=== PATIENT | male | born 1950 | race Caucasian/White ===

== ENCOUNTER 2018-09-19 09:25 | Outpatient (CLI) | payer MEDICARE, OTHER, SELFPAY ==
--- NOTE | 2018-09-19 12:21 | DI.RAD_ITS ---
SYMPTOMS/DIAGNOSIS: 6 MONTHS PAIN, REDUCED MOTION, M25.519 RIGHT SHOULDER: Six views were obtained. There is marked loss of the cartilaginous joint space of the glenohumeral joint with prominent subchondral sclerosis and cyst formation and prominent osteophyte formation. CONCLUSION: Severe DJD glenohumeral joint. Mild DJD of the AC joint noted as well.
== END 2018-09-19 09:45 ==
PROVIDERS: PCP Family Medicine; Visit Provider Family Medicine
DX: M25.511 Pain in right shoulder (principal); M19.011 Primary osteoarthritis, right shoulder; M25.811 Other specified joint disorders, right shoulder
CPT/HCPCS: 73030

== ENCOUNTER 2018-12-23 05:18 | Emergency (ER) | payer MEDICARE, OTHER, SELFPAY ==
[2018-12-23 05:17] VITALS: BP 141/107; PULSE 95; RESP 18; TEMP 36.1; O2SAT 100
[2018-12-23 05:36] VITALS: BP 143/95; O2SAT 98
--- NOTE | 2018-12-23 05:41 | W.ED.GENAD ---
Discharge Plan Disposition Patient Disposition: HOME Condition: Improving Discharge Details Chief Complaint: Nk/Back Pain Clinical Impression: Lumbago Primary Care Provider: Kwaku Rios ED Provider: Rupesh De León Home Meds and New Rx's Prescriptions: New hydrocodone-acetaminophen 5-325 mg tablet 1 tab PO Q6H PRN (Reason: pain) Qty: 10 RF: 0 Continued aspirin 81 mg tablet,delayed release (DR/EC) 81 mg PO DAILY RF: 0 Lantus U-100 Insulin 100 unit/mL solution 15 unit subcut HS Qty: 10 RF: 3 pen needle, diabetic [Lite Touch Insulin Pen [place]] 31 gauge x 3/16 needle .ROUTE .MEDSUPPLY Qty: 100 RF: 3 rosuvastatin [Crestor] 10 MG tablet 10 mg PO DAILY RF: 0 Apidra SoloStar U-100 Insulin 100 UNIT/ML insulin pen 8 units SQ AC RF: 0 Dostinex 0.5 mg PO .2X A WEEK RF: 0 amlodipine 5 MG tablet 10 mg PO DAILY Qty: 60 RF: 0 magnesium oxide 400 MG tablet 400 mg PO DAILY Qty: 30 RF: 0 furosemide 40 MG tablet 40 mg PO BID@0830,1600 Qty: 60 RF: 0 carvedilol 3.125 MG tablet 6.25 mg PO BID Qty: 60 RF: 0 trazodone 50 mg Tablet 50 mg PO HS RF: 0 diltiazem HCl [Cardizem] 60 MG tablet 60 mg PO DAILY Qty: 30 RF: 0 Discharge Instructions Instructions: Low Back Strain (ED) Additional Instructions: Continue your regular medications. We will trial a small number of hydrocodone for use to control your back pain as you have multilevel degenerative changes of the spine consistent with arthritis. Do not use Tylenol at the same time is taking the hydrocodone which does contain Tylenol. Please go directly to dialysis today. We will ask our care management team to help you with both home health evaluation and to achieve a follow-up in clinic. Continue your regular medications. Medical Decision Making 68-year-old male diabetic presents from home with his via EMS. Patient complains primarily of bilateral low back and flank pain intermittently over 1 week that is worse with movement. He also has had a cough and shortness of breath. He is afebrile with temp 36.1 his pulse is in the 90s, his blood pressure 143/95 with normal oxygen. Differential diagnosis includes exacerbation of previous sciatica, bronchitis, pneumonia, viral syndrome and back strain. Patient referred for laboratory testing and CT images. There are small bilateral pleural effusions present, no focal lung consolidation, the abdomen is unremarkable. The lumbar spine has multiple levels of degenerative changes. CBC shows a white count of 8, hematocrit 33, platelets 145. Chemistry sodium 139, potassium 5.3, chloride 98, bicarb 27, BUN 81, creatinine 9.3, LFTs are unremarkable. Consistent with lumbago secondary to degenerative changes. The patient and his voiced frustration with completing home health evaluations and achieving follow-up in primary care. I have consented him for use of a small amount of hydrocodone for his back. We will ask care management to arrange home health visit ECG Data Attestation: I personally reviewed and interpreted this ECG (s) as follows: Interpretation: Normal sinus rhythm with a rate of 95, nonspecific ST segment changes in lead V6, no ST segment elevation. HPI General Mode of arrival: EMS. Date/Time Provider Initiated Documentation: 12/23/18 05:30. Limitations to Documentation: no limitations. Information obtained by: patient, family and EMS. History of Present Illness 68 year old M presents to the emergency department with the chief complaint of Multiple complaints: Low back pain, cough, weakness for days time, described as moderate, Quality is described as aching and dull, and is localized to the back. Patient reports no radiation. Patient started experiencing this day(s) and it has been intermittent. Rest improves symptom(s), Movement worsens symptoms . Patient notes cough and shortness of breath. Patient did receive the following treatments prior to arrival, none Related Data Home Medications Medication Instructions Recorded Confirmed Apidra SoloStar U-100 Insulin 8 units SQ AC 12/24/14 12/23/18 Dostinex 0.5 mg PO .2X A WEEK 12/24/14 12/23/18 rosuvastatin [Crestor] 10 mg PO DAILY 12/24/14 12/23/18 amlodipine 10 mg PO DAILY #60 tab 11/17/15 12/23/18 carvedilol 6.25 mg PO BID #60 tab 11/17/15 12/23/18 furosemide 40 mg PO BID@0830,1600 #60 tab 04/21/16 05/28/19 magnesium oxide 400 mg PO DAILY #30 tab 11/17/15 12/23/18 diltiazem HCl [Cardizem] 60 mg PO DAILY #30 tab 04/25/17 12/23/18 aspirin 81 mg tablet,delayed 81 mg PO DAILY 09/19/18 12/23/18 release insulin glargine (U- 100) 100 15 unit SUBCUT HS #10 ml 11/11/18 12/23/18 unit/mL subcutaneous solution pen needle, diabetic 31 gauge x #100 each 11/18/18 12/23/1810/11 hydrocodone-acetaminophen 1 tab PO Q6H PRN #10 tab 12/23/18 trazodone 50 mg PO HS 12/23/18 12/23/18 Previous Rx's Medication Instructions Recorded amlodipine 10 mg PO DAILY #60 tab 11/17/15 carvedilol 6.25 mg PO BID #60 tab 11/17/15 furosemide 40 mg PO BID@0830,1600 #60 tab 11/17/15 magnesium oxide 400 mg PO DAILY #30 tab 11/17/15 diltiazem HCl [Cardizem] 60 mg PO DAILY #30 tab 04/25/17 insulin glargine (U- 100) 100 15 unit SUBCUT HS #10 ml 11/11/18 unit/mL subcutaneous solution pen needle, diabetic 31 gauge x #100 each 11/18/1810/11 hydrocodone-acetaminophen 1 tab PO Q6H PRN #10 tab 12/23/18 Allergies Allergy/AdvReac Type Severity Reaction Status Date / Time atorvastatin AdvReac Intermediate GI upset, Verified 12/23/18 05:23 dizziness oxycodone AdvReac Intermediate nightmares Verified 12/23/18 05:23 General Stated Complaint: Nk/Back Pain DAIANA: 3 Review of Systems Review of Systems Due for dialysis today. Denies fall or injury. 8 systems reviewed and otherwise negative [facility] Medical History Type II diabetes mellitus (Chronic) Surgical History Hx of joint replacement (Acute) S/P total knee replacement (Acute) Hx of tonsillectomy (Chronic) Colonoscopy - MAC (08/07/16) Family History Mother Diabetes Cancer Sister Cancer Diabetes Brother Heart disease Father No problems noted. 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 Pleasant, well groomed, interactive. HEAD: Normocephalic, atraumatic ENT: Mucous membranes moist, oropharynx unremarkable, External ear exam unremarkable EYES: PERRL, EOMI NECK: Full ROM, no NICKOLAS, no menigismus CHEST/RESP: Nontender, clear to auscultation bilateral, no wheeze/rhonchi/rales CARDIOVASCULAR: RRR, no murmur, rub bozena. 2+ Rad pulse bilateral ABDOMEN: Soft, nontender, no mass. +Bowel sounds,. Bilateral flank tenderness. EXT: Full ROM, no edema, no rash Neuro: Grossly normal neurologic exam, conversant, interactive. Psych: Speech fluent, thoughts congruent, affect normal Course Vital Signs Temperature 36.1 C L 12/23/18 05:17 Pulse 95 H 12/23/18 05:17 Respiratory Rate 18 12/23/18 05:17 Blood Pressure 141/107 H 12/23/18 05:17 Pulse Oximetry 100 12/23/18 05:17 Temperature 36.1 C L 12/23/18 05:17 Temperature Source Temporal Artery Scan 12/23/18 05:17 Pulse 95 H 12/23/18 05:17 Respiratory Rate 18 12/23/18 05:17 Respiratory Effort 12/23/18 05:17 Blood Pressure 143/95 H 12/23/18 05:36 Pulse Oximetry 98 12/23/18 05:36 Oxygen Delivery Method Room Air 12/23/18 05:36 Oxygen Flow Rate 0 12/23/18 05:36 Pain Level 10 12/23/18 05:17
[2018-12-23] MEDS: MORPHine 10 MG/ML VIAL 4 MG IVP (05:48)
[2018-12-23] MEDS: Normal Saline Flush 10 ML SYR IVP (05:50)
[2018-12-23 05:56] LABS: Abs Immature Grans 0.01 k/cumm (0.0-0.09); Absolute Basophil Count 0.04 k/cumm (0.0-0.2); Absolute Eosinophil Count 0.27 k/cumm (0.0-0.7); Absolute Lymphocyte Count 0.89 k/cumm (1.2-3.4); Basophils % 0.5; Eosinophils % 3.2; HCT 32.7 % (40.0-50.0); Immature Grans % 0.1; Lymphocytes % 10.5; Mean Corp. HGB Concentration 33.6 g/dL (32.0-36.0); Mean Corpuscular Hemoglobin 33.4 pg (27.0-33.0); Mean Corpuscular Volume 99.4 fL (80-95); Mean Platelet Volume 11.5 fL (8.0-11.0); Monocytes % 7.1; Neutrophils % 78.6; Platelet Count 145 x1000/uL (130-400); RBC 3.29 m/cumm (4.50-6.00); RBC Distribution Width 15.1 % (11.8-14.1); White Blood Cell Count 8.51 k/cumm (4.4-10.8)
[2018-12-23 06:10] LABS: ALT 49 U/L (12-78); AST 18 U/L (15-37); Albumin 3.7 g/dL (3.4-5.0); Alkaline Phosphatase 69 U/L (46-116); Anion Gap 14.3 mmol/L (3-11); Bilirubin, Total 0.4 mg/dL (0.2-1.0); CO2 26.7 mmol/L (21.0-32.0); Calcium 8.4 mg/dL (8.5-10.1); Chloride 98 mmol/L (98-107); Estimated GFR 5.66 (mL/min/1.73m2); Glucose 82 mg/dL (70-100); Potassium 5.3 mmol/L (3.5-5.1); Sodium 139 mmol/L (136-145); Total Protein 7.4 g/dL (6.4-8.2)
[2018-12-23 06:14] LABS: BUN 81 mg/dL (7-18); CREATININE 9.31 mg/dL (0.70-1.30)
--- NOTE | 2018-12-23 06:20 | DI.CT_ITS ---
SYMPTOMS/DIAGNOSIS: DIALYSIS PATIENT, COUGH, FEVER, FLANK PAIN CT OF THE CHEST, ABDOMEN AND PELVIS: Routine noncontrast examination was performed. There is patient motion artifact present. CT SCAN OF THE ABDOMEN AND PELVIS: Lack of IV contrast does limits evaluation of the abdominal and pelvic organs. There are post surgical changes of a lap band procedure. The enhanced liver, gallbladder, bile ducts, pancreas, spleen and adrenal glands are unremarkable. There is bilateral renal cortical atrophy present. No nephrolithiasis or hydronephrosis is seen. The urinary bladder is intact. The reproductive organs are unremarkable. Diverticulosis of the colon is noted but no evidence of acute diverticulitis. No evidence of a bowel obstruction or inflammation. There is a normal appendix present. The aorta is of normal caliber. No significant abdominal or pelvic adenopathy, ascites or pneumoperitoneum is present. Degenerative changes are present in the spine. IMPRESSION: No evidence of an acute abdomen. CT SCAN OF THE CHEST: There is are small bilateral pleural effusions, right greater than left. The heart is enlarged. No significant pericardial effusion is seen. No significant mediastinal adenopathy is present. Mild dependent atelectatic changes are seen in the lung bases. The lungs are otherwise clear. The tracheobronchial tree is unremarkable. There is a 3 mm noncalcified pulmonary nodule in the right upper lobe laterally. Degenerative changes are seen in the spine. IMPRESSION: 1. Small bilateral pleural effusions, right greater than left. 2. Small right upper lobe pulmonary nodule. Please correlate with the patient's past clinical and medical history including smoking history. Follow up should be considered based on past medical history and may include a follow up CT scan of the chest in 6-12 months.
--- NOTE | 2018-12-23 06:22 | DI.VRAD_ITS ---
EXAM: CT Chest Without Contrast EXAM DATE/TIME: 12/23/2018 5:40 AM CLINICAL HISTORY: 68 years old, male; Other: Back pain; Other: Cough; Prior surgery; Surgery date: 6+ months; Surgery type: Lap band; Patient HX: Diabetes, esrd; Additional info: Back pain going on and off for a while and cough TECHNIQUE: Imaging protocol: Axial computed tomography images of the chest without intravenous contrast. Coronal and sagittal reformatted images were created and reviewed. Radiation optimization: All CT scans at this facility use at least one of these dose optimization techniques: automated exposure control; mA and/or kV adjustment per patient size (includes targeted exams where dose is matched to clinical indication); or iterative reconstruction. COMPARISON: No relevant prior studies available. FINDINGS: Lungs: unremarkable. No consolidation. No masses. Pleural space: Small right pleural effusion. Trace amount of pleural fluid on the left. Heart: unremarkable. No pericardial effusion. Aorta: unremarkable. No significant aortic dilitation. Lymph nodes: Unremarkable. No enlarged lymph nodes. Bones/joints: Unremarkable. No acute fracture. Soft tissues: Unremarkable. IMPRESSION: Small pleural effusions. EXAM: CT Abdomen and Pelvis Without Contrast EXAM DATE/TIME: 12/23/2018 5:40 AM CLINICAL HISTORY: 68 years old, male; Other: Back pain; Other: Cough; Prior surgery; Surgery date: 6+ months; Surgery type: Lap band; Patient HX: Diabetes, esrd; Additional info: Back pain going on and off for a while and cough TECHNIQUE: Imaging protocol: Axial computed tomography images of the abdomen and pelvis without contrast. Coronal and sagittal reformatted images were created and reviewed. Radiation optimization: All CT scans at this facility use at least one of these dose optimization techniques: automated exposure control; mA and/or kV adjustment per patient size (includes targeted exams where dose is matched to clinical indication); or iterative reconstruction. COMPARISON: No relevant prior studies available. FINDINGS: ABDOMEN: Liver: No suspicious lesions. Gallbladder and bile ducts: No acute or concerning findings. Pancreas: Unremarkable. Spleen: No suspicious lesions. Adrenals: Unremarkable. No suspicious nodule. Kidneys and ureters: Kidneys are mildly atrophic. Stomach and bowel: Unremarkable. No inflammed or dilated loops. Appendix: Normal appendix. PELVIS: Bladder: Unremarkable as visualized. Reproductive: Unremarkable as visualized. ABDOMEN and PELVIS: Intraperitoneal space: No free air. No significant fluid collection. Bones/joints: Mild to moderate degenerative changes in the lumbar spine with multiple levels of vacuum phenomenon within the disc and some endplate erosions. Soft tissues: Unremarkable. Vasculature: Unremarkable. Lymph nodes: Unremarkable. IMPRESSION: Lumbar spine degenerative changes. Mildly atrophic kidneys. Dictated and Authenticated by: Duran Pena MD. Ordering:LAILA Goddard MD
[2018-12-23] MEDS: HYDROcodone 5/Acetaminophen 325 TAB PO ×2 (06:43)
--- NOTE | 2018-12-23 11:11 | PDOC.ERCMPRO ---
Care Management Progress Note 12/23-Dr. De León requested assistance with home services. Kofi has been discharged and was going to his dialysis appt. This CM spoke with Carmen in the waiting room. Carmen states she needs some help with caring for Kofi. Carmen states they need assistance with food stamp applications as well as some care giving. This CM faxed referral to [facility] and then spoke with Cornelia. Cornelia stated she has been trying to reach out to Kofi but has not received a response yet.
== END 2018-12-23 07:25 | disposition home or self-care (01) ==
PROVIDERS: Emergency Provider Emergency Medicine; PCP Family Medicine
DX: M54.5 Low back pain (principal); E11.22 Type 2 diabetes mellitus with diabetic chronic kidney disease; Z79.4 Long term (current) use of insulin; N18.6 End stage renal disease; I12.0 Hypertensive chronic kidney disease with stage 5 chronic kidney disease or end stage renal disease
CPT/HCPCS: 36415; 71250; 80053; 93005; 96374; 99285; 74176; 81003; 85025; 93010; 99284; J2270

== ENCOUNTER 2019-01-20 18:54 | Emergency (ER) | payer MEDICARE, OTHER, SELFPAY ==
[2019-01-20] VITALS (15 sets, daily range): BP systolic 147–188; BP diastolic 87–120; PULSE 47–117; RESP 10–34; TEMP 37; O2SAT 83–99
--- NOTE | 2019-01-20 19:13 | DI.CT_ITS ---
SYMPTOM/DIAGNOSIS: RT SIDED ABD PAIN ABDOMEN AND PELVIC CT: CT examination of the abdomen and pelvis was performed with a bolus infusion of 125 cc's of Omnipaque 350. There is cardiac enlargement and there are bilateral pleural effusions suggesting mild CHF. There is decreased hepatic attenuation consistent with hepatic steatosis. No focal lesion identified although there is mild heterogeneity of hepatic parenchyma. Spleen is unremarkable in appearance. Pancreas appears normal. Gallbladder and bile ducts appear normal. Abdominal aorta is of normal diameter. There appear to be high grade stenoses of both renal arteries and there is bilateral renal cortical thinning suggesting chronic vascular compromise. No abdominal or pelvic adenopathy. No significant abdominal wall hernia. Appendix is normal. No evidence of diverticulitis. There is a gastric band in plate with subcutaneous reservoir in the anterior abdominal wall. No evidence of obstruction or perforation. CONCLUSION: No evidence of acute intra-abdominal process. Probable CHF.
--- NOTE | 2019-01-20 19:17 | W.ED.GENAD ---
Discharge Plan Disposition Patient Disposition: HOME Condition: Good Discharge Details Chief Complaint: Abd Prob Clinical Impression: Nausea Primary Care Provider: Kwaku Rios ED Provider: Peter Hairston Home Meds and New Rx's Prescriptions: New ondansetron HCl [Zofran] 4 mg tablet 4 mg PO TID PRN (Reason: nausea and vomiting) 5 Days Qty: 10 RF: 0 No Action tramadol 50 mg tablet 50 mg PO Q12H PRN (Reason: pain) Qty: 56 RF: 1 aspirin 81 mg tablet,delayed release (DR/EC) 81 mg PO DAILY RF: 0 Lantus U-100 Insulin 100 unit/mL solution 15 unit subcut HS Qty: 10 RF: 3 pen needle, diabetic [Lite Touch Insulin Pen [place]] 31 gauge x 3/16 needle .ROUTE .MEDSUPPLY Qty: 100 RF: 3 amlodipine 5 mg tablet 10 mg PO DAILY Qty: 60 RF: 11 diltiazem HCl 180 mg capsule,extended release 24hr 180 mg PO DAILY RF: 0 rosuvastatin [Crestor] 10 MG tablet 10 mg PO DAILY RF: 0 Apidra SoloStar U-100 Insulin 100 UNIT/ML insulin pen 8 units SQ AC RF: 0 Dostinex 0.5 mg PO .2X A WEEK RF: 0 magnesium oxide 400 MG tablet 400 mg PO DAILY Qty: 30 RF: 0 furosemide 40 MG tablet 40 mg PO BID@0830,1600 Qty: 60 RF: 0 carvedilol 3.125 MG tablet 6.25 mg PO BID Qty: 60 RF: 0 trazodone 50 mg Tablet 50 mg PO HS RF: 0 Discharge Instructions Instructions: Acute Nausea and Vomiting (ED) Additional Instructions: Your CT scan shows no evidence of significant abnormality. Please take the Zofran as needed for nausea. If you notice any worsening of your symptoms, or any new symptoms such as vomiting, diarrhea, fever, chills, shortness of breath, chest pain, numbness, weakness, or fainting , please return immediately to the emergency department for reevaluation. Please follow up with your primary care provider as soon as possible for reassessment and reevaluation. As always, it was a pleasure participating in your medical care today. Referrals: Kwaku Rios DO [Primary Care Provider] - Medical Decision Making This is a 68-year-old male with a past medical history of dialysis, renal failure, history of PVCs A. fib a flutter, who presents today for abdominal pain for the last 2 to 3 days. He has nausea but no vomiting. He has been eating and drinking, he has been having regular bowel movements, and he still urinates in spite of his dialysis. Exam demonstrates minimal abdominal tenderness in the right periumbilical region. No guarding or rebound. Exam otherwise notably unremarkable. Differential includes mild viral gastroenteritis, constipation, less likely acute abdominal pathology. We will get a CT scan to rule out acute process. The patient does not want anything for pain at this time 9:[address] scan has returned, negative for any acute process per virtual radiologist. White count normal, no significant left shift. No bandemia. Electrolytes stable, renal function at baseline. Lipase normal. There is no evidence of significant infection. On reassessment the patient states that his nausea is completely resolved and he feels much better. Repeat abdominal exam shows no evidence of acute surgical abdomen. Vital signs remain normal. No evidence of DKA. The signs and symptoms inconsistent with an acute surgical abdominal pathology, or any life-threatening etiology at this time I feel he can be safely discharged home with close follow-up. As his symptoms have resolved and he is tolerating p.o. well, I feel that no additional fluids are indicated. We will give Zofran for home use as needed. I have extensively reviewed the treatment plan and discharge instructions with the patient. I have addressed all patient concerns at this time. The patient was made aware of what symptoms to monitor for that would warrant a return to the emergency department. Discussed the plan with the patient, they demonstrate verbal understanding and agreement with our assessment and plan at this time. FINDINGS: Lungs: Nonspecific bilateral dependent pleuroparenchymal changes. Bibasilar linear opacities of atelectasis and/or fibrosis. Pleural space: Small pleural effusion on the left area of small to moderate-sized pleural effusion on the right. Heart: Mild cardiomegaly. Liver: Unremarkable. No mass. Gallbladder and bile ducts: No calcified stones. No ductal dilation. Pancreas: Unremarkable. No ductal dilation. Spleen: Unremarkable. No splenomegaly. Adrenals: Unremarkable. No mass. Kidneys and ureters: A somewhat atrophic appearance to the kidneys. Stomach and bowel: Gastric lead ends in place. Colonic diverticulosis. Appendix: No evidence of appendicitis. Intraperitoneal space: Trace pelvic fluid. Vasculature: Atherosclerotic abdominal aorta and branches. Lymph nodes: No enlarged lymph nodes. Bladder: Unremarkable as visualized. Reproductive: Unremarkable as visualized. Bones/joints: Multilevel degenerative changes within thoracic and lumbar spine. Soft tissues: The abdomen is obese. IMPRESSION: Gastric band in place. No evidence of bowel obstruction or perforation. Colonic diverticulosis, no acute diverticulitis. See the body of the report for the remainder of ancillary findings. Dictated and Authenticated by: Cedrick Valdes MD. Ordering:KARTHIK Green MD HPI General Date/Time Provider Initiated Documentation: 01/20/19 19:13. HPI Narrative: This is a 68-year-old male with past medical history of renal failure, type 2 diabetes, PVCs, atrial fibrillation/a flutter, hypertension, high cholesterol, dialysis with a schedule of Saturday. He had dialysis today. He presents today for abdominal pain. The patient states that for the last 2 to 3 days he has had mild mid to right sided abdominal pain. He describes it as aching in sensation. It is not improved with dialysis. He denies any vomiting but does admit to nausea. He denies any diarrhea or constipation. He had a bowel movement yesterday, and urinated today. He denies any dysuria or hematuria. He is on the kidney transplant list. He denies any fever or chills. Previous surgical history is positive for appendectomy, as well as previous peritoneal dialysis. Patient denies any other modifying factors or any other complaints at this time. He denies any IV or illicit drug use or pertinent family history. Related Data Home Medications Medication Instructions Recorded Confirmed Apidra SoloStar U-100 Insulin 8 units SQ AC 12/24/14 01/20/19 Dostinex 0.5 mg PO .2X A WEEK 12/24/14 01/20/19 rosuvastatin [Crestor] 10 mg PO DAILY 12/24/14 01/20/19 carvedilol 6.25 mg PO BID #60 tab 11/17/15 01/20/19 furosemide 40 mg PO BID@0830,1600 #60 tab 11/17/15 01/20/19 magnesium oxide 400 mg PO DAILY #30 tab 11/17/15 01/20/19 aspirin 81 mg tablet,delayed 81 mg PO DAILY 09/19/18 01/20/19 release insulin glargine (U- 100) 100 15 unit SUBCUT HS #10 ml 11/11/18 01/20/19 unit/mL subcutaneous solution pen needle, diabetic 31 gauge x #100 each 11/18/18 12/29/1810/11 trazodone 50 mg PO HS 12/23/18 01/20/19 tramadol 50 mg tablet 50 mg PO Q12H PRN #56 tab 12/29/18 01/20/19 amlodipine 5 mg tablet 10 mg PO DAILY #60 tab 01/19/19 01/20/19 diltiazem CD 180 mg 180 mg PO DAILY 01/20/19 01/20/19 capsule,extended release 24 hr ondansetron HCl [Zofran] 4 mg PO TID PRN 5 Days #10 tab 01/20/19 Previous Rx's Medication Instructions Recorded carvedilol 6.25 mg PO BID #60 tab 11/17/15 furosemide 40 mg PO BID@0830,1600 #60 tab 11/17/15 magnesium oxide 400 mg PO DAILY #30 tab 11/17/15 insulin glargine (U- 100) 100 15 unit SUBCUT HS #10 ml 11/11/18 unit/mL subcutaneous solution pen needle, diabetic 31 gauge x #100 each 11/18/1810/11 tramadol 50 mg tablet 50 mg PO Q12H PRN #56 tab 12/29/18 amlodipine 5 mg tablet 10 mg PO DAILY #60 tab 01/19/19 ondansetron HCl [Zofran] 4 mg PO TID PRN 5 Days #10 tab 01/20/19 Allergies Allergy/AdvReac Type Severity Reaction Status Date / Time atorvastatin AdvReac Intermediate GI upset, Verified 01/20/19 18:59 dizziness oxycodone AdvReac Intermediate nightmares Verified 01/20/19 18:59 General Stated Complaint: Abd Prob DAIANA: 3 Review of Systems Review of Systems All systems reviewed & are unremarkable except as noted in HPI and below PFSH Social History Smoking/Tobacco Use Status: Never Alcohol Intake: never Drug use: Never Substance use type: does not use Household members: spouse Housing: house Number of Children: 0 What type of physical activity do you participate in: none Seatbelt use: always Drive intox or ride 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 3.ENT: Atraumatic external nose and ears. Moist MM. Neck: Symmetric, trachea midline, No thyromegaly. 4.CVS: +S1/S2, No murmurs or gallops. Peripheral pulses 2+ and equal in all extremities. Brisk capillary refill in all extremities. 5.RESP: Unlabored respiratory effort. Clear to auscultation bilaterally. No wheezes rales or rhonchi 6.GI: Soft, Nondistended, No hepatosplenomegaly. No guarding or rebound. Minimal right-sided periumbilical tenderness. No evidence of an acute surgical abdomen. Multiple scars from previous surgeries. 7.MSK: Normocephalic/Atraumatic, Extremities w/o deformity or ttp No cyanosis or clubbing, Normal movement of all extremities. Left AV fistula demonstrates palpable thrill 8.Skin: Warm, Dry. No rashes or lesions. 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 Sensation grossly intact, no focal neurologic deficits. 10.Psych: (AAO) x3. Appropriate mood and affect Course Vital Signs Respiratory Rate 01/20/19 18:52 Pulse Oximetry 93 L 01/20/19 18:52 Temperature 37 C 01/20/19 18:54 Temperature Source Skin 01/20/19 18:54 Pulse 117 H 01/20/19 18:54 Pulse 101 H 01/20/19 18:52 Respiratory Rate 24 01/20/19 18:54 Respiratory Effort Non-Labored 01/20/19 19:02 Blood Pressure 186/97 H 01/20/19 18:54 Blood Pressure Position Sitting 01/20/19 18:54 Pulse Oximetry 99 01/20/19 18:54 Oxygen Delivery Method Room Air 01/20/19 18:54 Oxygen Flow Rate 0 01/20/19 18:54 Pain Level 8 01/20/19 18:54
[2019-01-20] MEDS: Ondansetron 4 MG/2 ML VIAL IVP (19:21)
[2019-01-20 19:26] LABS: Abs Immature Grans 0.01 k/cumm (0.0-0.09); Absolute Basophil Count 0.05 k/cumm (0.0-0.2); Absolute Eosinophil Count 0.13 k/cumm (0.0-0.7); Absolute Lymphocyte Count 0.52 k/cumm (1.2-3.4); Absolute Monocyte Count 0.68 k/cumm (0.11-0.7); Absolute Neutrophil Count 5.18 k/cumm (1.2-6.7); Basophils % 0.8; HCT 36.9 % (40.0-50.0); HGB 11.9 g/dL (13.5-17.5); Immature Grans % 0.2; Lymphocytes % 7.9; Mean Corp. HGB Concentration 32.2 g/dL (32.0-36.0); Mean Corpuscular Hemoglobin 31.8 pg (27.0-33.0); Mean Corpuscular Volume 98.7 fL (80-95); Mean Platelet Volume 11.4 fL (8.0-11.0); Monocytes % 10.4; Neutrophils % 78.7; Platelet Count 152 x1000/uL (130-400); RBC 3.74 m/cumm (4.50-6.00); RBC Distribution Width 15.5 % (11.8-14.1); White Blood Cell Count 6.57 k/cumm (4.4-10.8)
[2019-01-20] MEDS: Omnipaque 350 MG/ML 100 ML BTL IV (19:28)
[2019-01-20 19:41] LABS: ALT 33 U/L (12-78); AST 20 U/L (15-37); Albumin 3.7 g/dL (3.4-5.0); Alkaline Phosphatase 77 U/L (46-116); Anion Gap 9.2 mmol/L (3-11); BUN 22 mg/dL (7-18); Bilirubin, Total 0.6 mg/dL (0.2-1.0); CO2 32.8 mmol/L (21.0-32.0); Calcium 9.8 mg/dL (8.5-10.1); Chloride 97 mmol/L (98-107); Estimated GFR 12.28 (mL/min/1.73m2); Glucose 149 mg/dL (70-100); Lipase 63 U/L (73-393); Potassium 4.2 mmol/L (3.5-5.1); Sodium 139 mmol/L (136-145); Total Protein 7.5 g/dL (6.4-8.2)
[2019-01-20 19:51] LABS: Diff Comment Diff Reviewed; RBC Morphology Normal
[2019-01-20 20:00] LABS: CREATININE 4.76 mg/dL (0.70-1.30)
--- NOTE | 2019-01-20 20:32 | DI.VRAD_ITS ---
EXAM: CT Abdomen and Pelvis With Contrast EXAM DATE/TIME: 01/20/2019 7:16 PM CLINICAL HISTORY: 68 years old, male; Other: Right sided abdominal pain TECHNIQUE: Imaging protocol: Axial computed tomography images of the abdomen and pelvis with intravenous contrast. Coronal and sagittal reformatted images were created and reviewed. Radiation optimization: All CT scans at this facility use at least one of these dose optimization techniques: automated exposure control; mA and/or kV adjustment per patient size (includes targeted exams where dose is matched to clinical indication); or iterative reconstruction. Contrast material: OMNIPAQUE 350; Contrast volume: 125 ml; Contrast route: IV; COMPARISON: CT CHEST/ABD/PEL WO 12/23/2018 6:03 AM FINDINGS: Lungs: Nonspecific bilateral dependent pleuroparenchymal changes. Bibasilar linear opacities of atelectasis and/or fibrosis. Pleural space: Small pleural effusion on the left area of small to moderate-sized pleural effusion on the right. Heart: Mild cardiomegaly. Liver: Unremarkable. No mass. Gallbladder and bile ducts: No calcified stones. No ductal dilation. Pancreas: Unremarkable. No ductal dilation. Spleen: Unremarkable. No splenomegaly. Adrenals: Unremarkable. No mass. Kidneys and ureters: A somewhat atrophic appearance to the kidneys. Stomach and bowel: Gastric lead ends in place. Colonic diverticulosis. Appendix: No evidence of appendicitis. Intraperitoneal space: Trace pelvic fluid. Vasculature: Atherosclerotic abdominal aorta and branches. Lymph nodes: No enlarged lymph nodes. Bladder: Unremarkable as visualized. Reproductive: Unremarkable as visualized. Bones/joints: Multilevel degenerative changes within thoracic and lumbar spine. Soft tissues: The abdomen is obese. IMPRESSION: Gastric band in place. No evidence of bowel obstruction or perforation. Colonic diverticulosis, no acute diverticulitis. See the body of the report for the remainder of ancillary findings. Dictated and Authenticated by: Cedrick Valdes MD. Ordering:KARTHIK Green MD
[2019-01-20] MEDS: amLODIPine 10 MG TAB PO (20:36)
[2019-01-20] MEDS: Carvedilol 6.25 MG TAB PO (20:36)
--- NOTE | 2019-01-20 20:46 | NUR.NOTE ---
Nursing Note: Pt BP noted to be elevated, notified. Pt had not yet taken his Amlodipine 10mg or Coreg 6.25mg. Received orders to give one time dose of these HS medications now. Pt was instructed that these were his HS doses and to not take these medications again when he got home- and pt verbalized understanding.
[2019-01-20 20:55] LABS: Bilirubin Negative (Negative); Blood Trace-lysed (Negative); Clarity Clear (Clear); Glucose 250 mg/dL (Negative); Ketones Negative (Negative); Leukocyte Esterase Negative (Negative); Nitrite Negative (Negative); Specific Gravity 1.015 (1.005-1.025); Urobilinogen 0.2 EU/dL (Up TO 0.2); pH 8.5 (5-8)
[2019-01-20 21:09] LABS: Bacteria Negative HPF (Negative); C & S Indicated? No; Casts Negative LPF (Negative); Crystals Negative HPF (Negative); Epithelial Cells Few HPF (Negative); Mucus Negative (Negative); Other Cells Few Transitional (Negative); RBC Negative (0-2)
[2019-01-20] MEDS: Ondansetron O.D.T. 4 MG TABEF PO (21:19)
== END 2019-01-20 21:22 | disposition home or self-care (01) ==
PROVIDERS: Emergency Provider Student in an Organized Health Care Education/Training Program; PCP Family Medicine
DX: R11.0 Nausea (principal); R10.9 Unspecified abdominal pain; I48.92 Unspecified atrial flutter; N18.6 End stage renal disease; Z99.2 Dependence on renal dialysis
CPT/HCPCS: 80053; 83690; 96374; 99285; 74177; 81003; 81015; 85025; 99284; J2405; J3490

== ENCOUNTER 2019-02-05 09:32 | Emergency (ER) | payer MEDICARE, OTHER, SELFPAY ==
[2019-02-05] VITALS (52 sets, daily range): BP systolic 118–159; BP diastolic 63–105; PULSE 63–91; RESP 10–27; TEMP 36.6; O2SAT 85–100
[2019-02-05 10:13] LABS: Abs Immature Grans 0.02 k/cumm (0.0-0.09); Absolute Basophil Count 0.03 k/cumm (0.0-0.2); Absolute Eosinophil Count 0.15 k/cumm (0.0-0.7); Absolute Lymphocyte Count 0.63 k/cumm (1.2-3.4); Absolute Monocyte Count 0.57 k/cumm (0.11-0.7); Absolute Neutrophil Count 6.68 k/cumm (1.2-6.7); Basophils % 0.4; Eosinophils % 1.9; HCT 33.7 % (40.0-50.0); Immature Grans % 0.2; Lymphocytes % 7.8; Mean Corp. HGB Concentration 32.6 g/dL (32.0-36.0); Mean Corpuscular Hemoglobin 31.6 pg (27.0-33.0); Mean Corpuscular Volume 96.8 fL (80-95); Mean Platelet Volume 11.2 fL (8.0-11.0); Monocytes % 7.1; Neutrophils % 82.6; Platelet Count 185 x1000/uL (130-400); RBC 3.48 m/cumm (4.50-6.00); RBC Distribution Width 15.9 % (11.8-14.1); White Blood Cell Count 8.08 k/cumm (4.4-10.8)
--- NOTE | 2019-02-05 10:19 | ED.GENADUL_ITS ---
Discharge Plan Disposition Patient Disposition: [facility] Condition: Fair Discharge Details Chief Complaint: SOB Clinical Impression: Pneumonia Primary Care Provider: Kwaku Rios ED Provider: Shannon Pace Home Meds and New Rx's Prescriptions: No Action tramadol 50 mg tablet 50 mg PO Q12H PRN (Reason: pain) Qty: 56 RF: 1 amlodipine 10 mg tablet 10 mg PO DAILY Qty: 30 RF: 11 aspirin 81 mg tablet,delayed release (DR/EC) 81 mg PO DAILY Qty: 30 RF: 11 carvedilol 3.125 mg tablet 6.25 mg PO BID Qty: 60 RF: 11 diltiazem HCl 180 mg capsule,extended release 24hr 180 mg PO DAILY Qty: 30 RF: 11 cabergoline 0.5 mg tablet 0.5 mg PO .COMPLEX Qty: 8 RF: 11 furosemide 40 mg tablet 40 mg PO BID@0830,1600 Qty: 60 RF: 11 Lantus U-100 Insulin 100 unit/mL solution 15 unit subcut HS Qty: 10 RF: 3 magnesium oxide 400 mg (241.3 mg magnesium) tablet 400 mg PO DAILY Qty: 30 RF: 11 ondansetron HCl 4 mg tablet 4 mg PO TID PRN (Reason: nausea and vomiting) Qty: 30 RF: 11 (DME) pen needle, diabetic [Lite Touch Insulin Pen Colby] 31 gauge x 3/16 needle See Dose Instructions .ROUTE .MEDSUPPLY Qty: 100 RF: 3 rosuvastatin [Crestor] 10 mg tablet 10 mg PO DAILY Qty: 30 RF: 11 trazodone 50 mg tablet 50 mg PO HS PRN (Reason: insomnia) Qty: 30 RF: 11 nitroglycerin 0.4 mg tablet, sublingual 0.4 mg SL Q5-15M PRNRF: 0 Humalog KwikPen Insulin 100 unit/mL insulin pen 8 unit SC QAC 90 Days Qty: 15 RF: 3 Discharge Data Discharge Date/Time-TO BE ENTERED AT DEPARTURE: 02/05/19 16:31 Medical Decision Making Patient is a 68-year-old male who receives dialysis Saturday, , Saturday, presented today with chief complaint of shortness of breath. States he said shortness of breath for the past 3 weeks but this is greatly increased over the past 24 hours. Having difficulty moving about the house at this time. Denies any chest pain. Reports very mild cough is been nonproductive. Afebrile. Has been feeling very fatigued. Has been having some insomnia, worse than baseline, since the onset of the shortness of breath. His reports that he is been walking around frequently at night. He reports poor appetite. No abdominal pain. Will obtain laboratory evaluation, EKG, chest X On exam, the patient does appear short of breath after ambulating into the room. He appears chronically ill. He is noted to be hypoxic with a baseline oxygenation of 88% on room air. This did bump as well to 97% on 2 L of fluid. Lungs are clear. Cardiac exam is benign. He does have some mild edema in his bilateral lower extremities. EKG was reviewed by Dr. De León, unchanged from baseline. Patient is in normal sinus rhythm with a rate of 84 CXR reviewed by radiologist, noted to have right sided pneumonia. Patients history is not consistent with pneumonia, only minimal cough, no fevers/chills. Concerned for possible ca vs. other etiology. Will obtian noncontrast CT for better evaluation. Labs reviewed. No leukocytosis. Patient is baseline anemic with a hemoglobin of 11. His d-dimer is elevated at 1800. However, with this localized finding on the chest x-ray, will hold off on chasing down possible PE as this is likely elevated associated with patient's chronic comorbidities. His creatinine is 6.48 which is not unusual for the patient. Anion gap of 12.4. Magnesium is a little high at 2.6. His BNP is over 35,000. TSH is 3.8 but free T4 is within normal limits. Of note, patients potassium is normal at 3.9. Spoke with the radiologist regarding chest CT. He notes an expansive pneumonia and bilateral pleural effusions. Patient notes that it is fairly diffuse in the right side as well as left mediastinal pneumonia. He does advised that it may be hemorrhage versus edema. Patient does not have history consistent for hemorrhage. May be edema but he advised more likely to be pneumonia. Will begin antibiotics. Will cover for hospital-acquired as the patient is a dialysis patient was given vancomycin and cefepime. I did consult with pharmacist regarding dosing given the patient's kidney disease. Patient given a 250 mg bolus here. As the patient is on dialysis, is not a candidate for admission here. He will require admission as he is needing IV antibiotics and continued oxygen. Consulted with Dr. Mason at [facility] with hospital medicine regarding transfer to their facility. They accept patient in transfer for dialysis and continued care of his respiratory complaints. HPI General Mode of arrival: ambulatory . Date/Time Provider Initiated Documentation: 02/05/19 09:41 . Limitations to Documentation: no limitations . Information obtained by: patient, family (accompanied by daughter) and RN notes reviewed . HPI Narrative: Patient is 68-year-old male, accompanied by his , with chief complaint of shortness of breath. Patient has history of type 2 diabetes, end-stage renal disease, on dialysis, depression, atrial fibrillation, insomnia, secondary hyperparathyroidism, pituitary adenoma, mild hyperlipidemia, hypertension, sleep apnea, anemia of renal disease, mild diastolic dysfunction. His reports that he has had worsening shortness of breath quite some time. However, the past 3 weeks increased. He reports is worse at night when in bed. Shortness of breath has been keeping him awake. Patient endorses fatigue at this time. His reports that he has been roaming during the night secondary to this shortness of breath. Reports over the past 24 hours is been increasing. Reports he has been feeling generally unwell for quite some time but this is also been increasing. He denies any chest pain. Denies any headaches. No recent travel. No recent change in medications. Patient does make urine. Aside from today, patient had been attending dialysis on scheduled basis. Related Data Home Medications Medication Instructions Recorded Confirmed tramadol 50 mg tablet 50 mg PO Q12H PRN #56 tab 12/29/18 02/05/19 amlodipine 10 mg tablet 10 mg PO DAILY #30 tab 02/03/19 02/05/19 aspirin 81 mg tablet,delayed 81 mg PO DAILY #30 tab 02/03/19 02/05/19 release cabergoline 0.5 mg tablet 0.5 mg PO .COMPLEX #8 tab 02/03/19 02/05/19 carvedilol 3.125 mg tablet 6.25 mg PO BID #60 tab 02/03/19 02/05/19 diltiazem HCl 180 mg 180 mg PO DAILY #30 cap 02/03/19 02/05/19 capsule,extended release 24 hr furosemide 40 mg tablet 40 mg PO BID@0830,1600 #60 tab 02/03/19 02/05/19 insulin glargine 100) 100 unit/mL 15 unit SUBCUT HS #10 ml 02/03/19 02/05/19 subcutaneous solution magnesium oxide 400 mg (241.3 mg 400 mg PO DAILY #30 tab 02/03/19 02/05/19 magnesium) tablet ondansetron HCl 4 mg tablet 4 mg PO TID PRN #30 tab 02/03/19 02/05/19 pen needle, diabetic 31 gauge x #100 each 02/03/19 02/05/1910/11 rosuvastatin 10 mg tablet 10 mg PO DAILY #30 tab 02/03/19 02/05/19 trazodone 50 mg tablet 50 mg PO HS PRN #30 tab 02/03/19 02/05/19 nitroglycerin 0.4 mg sublingual 0.4 mg SL Q5-15M PRN 02/09/19 tablet insulin lispro 100) 100 unit/mL 8 unit SC QAC 90 Days #15 ml 02/10/19 subcutaneous pen Previous Rx's Medication Instructions Recorded tramadol 50 mg tablet 50 mg PO Q12H PRN #56 tab 12/29/18 amlodipine 10 mg tablet 10 mg PO DAILY #30 tab 02/03/19 aspirin 81 mg tablet,delayed 81 mg PO DAILY #30 tab 02/03/19 release cabergoline 0.5 mg tablet 0.5 mg PO .COMPLEX #8 tab 02/03/19 carvedilol 3.125 mg tablet 6.25 mg PO BID #60 tab 02/03/19 diltiazem HCl 180 mg 180 mg PO DAILY #30 cap 02/03/19 capsule,extended release 24 hr furosemide 40 mg tablet 40 mg PO BID@0830,1600 #60 tab 02/03/19 insulin glargine 100) 100 unit/mL 15 unit SUBCUT HS #10 ml 02/03/19 subcutaneous solution magnesium oxide 400 mg (241.3 mg 400 mg PO DAILY #30 tab 02/03/19 magnesium) tablet ondansetron HCl 4 mg tablet 4 mg PO TID PRN #30 tab 02/03/19 pen needle, diabetic 31 gauge x #100 each 02/03/1910/11 rosuvastatin 10 mg tablet 10 mg PO DAILY #30 tab 02/03/19 trazodone 50 mg tablet 50 mg PO HS PRN #30 tab 02/03/19 insulin lispro 100) 100 unit/mL 8 unit SC QAC 90 Days #15 ml 02/10/19 subcutaneous pen Allergies Allergy/AdvReac Type Severity Reaction Status Date / Time atorvastatin AdvReac Intermediate GI upset, Verified 01/20/19 18:59 dizziness oxycodone AdvReac Intermediate nightmares Verified 01/20/19 18:59 General Stated Complaint: SOB DAIANA: 3 Review of Systems Constitutional Reports as per HPI, Denies chills, Reports fatigue, Denies fever(s), Denies headache(s), Denies lethargy and Denies poor appetite Eyes Denies change in vision ENT Denies dizziness and Denies headache(s) Cardiovascular Reports as per HPI, Denies chest pain, Denies chest pain at rest, Denies chest pain with activity, Denies lightheadedness, Denies radiating jaw, neck or arm pain, Denies palpitations, Reports dyspnea and Reports dyspnea on exertion Respiratory Reports as per HPI, Denies chest congestion, Denies cough, Denies pain on inspiration, Denies pain with cough, Reports dyspnea, Reports dyspnea on exertion and Denies wheezing Gastrointestinal Reports as per HPI, Denies abdominal pain, Denies diarrhea, Denies nausea and Denies vomiting Genitourinary Reports as per HPI Musculoskeletal Reports as per HPI and Denies back pain Integumentary/Breasts Reports as per HPI and Denies rash Neurologic Reports as per HPI, Denies dizziness and Denies headache(s) Endocrine Reports fatigue and Denies palpitations Allergic/Immunologic Denies wheezing PFSH Medical History Type II diabetes mellitus (Chronic) Surgical History Colonoscopy - MAC (08/07/16) Hx of joint replacement (Acute) Hx of tonsillectomy (Chronic) S/P total knee replacement (Acute) Social History Smoking/Tobacco Use Status: Never Alcohol Intake: never Drug use: Never Substance use type: does not use Household members: spouse Housing: house Number of Children: 0 What type of physical activity do you participate in: none Seatbelt use: always Drive intox or ride w/intox class a truck driver: No Do you feel safe at home: Yes Do you feel safe in your relationship?: Yes Exam Const General: cooperative, comfortable (patient appears fatigued), no acute distress, well developed and ill appearing chronically Nutritional Appearance: average body habitus and well nourished Orientation: alert, awake and oriented x3 [facility] Head: normal to inspection Ears: hearing grossly normal bilaterally Mouth: mucous membranes dry (patient appears dry) Chest Chest: normal inspection of the chest, normal palpation of entire chest wall and no crepitus Resp Effort & Inspection: normal respiratory effort, able to speak in complete sentences and no respiratory distress Auscultation: clear to auscultation bilaterally, no rales, no rhonchi and no wheezes Cardio Rate: regular rate Rhythm: regular rhythm Heart Sounds: S1 normal and S2 normal GI Inspection: normal to inspection, no edema and non-distended Palpation: soft, no hepatosplenomegaly, not firm, no guarding, not rigid and nontender Auscultation: normal bowel sounds Back/Spine/Pelvis Back: no CVA tenderness Thoracic/Lumbar Spine: thoracic and lumbar spine normal to inspection Skin General skin exam: no rashes or lesions noted Trauma: no lacerations or abrasions Neuro General: alert, awake and oriented x3 Cognition: normal cognition Speech: speech normal Gait: normal gait Extrem General: normal to inspection, normal capillary refill, no calf tenderness, normal gait and edema Laterality: bilateral (mild, nonpitting edema BLE) Psych Appearance: grossly normal and well kempt Mental Status: mental status grossly normal Speech and Movement: speech and movement normal Course Vital Signs Temperature 36.6 C 02/05/19 09:38 Pulse 87 02/05/19 09:38 Respiratory Rate 22 02/05/19 09:38 Blood Pressure 159/89 H 02/05/19 09:38 Pulse Oximetry 89 L 02/05/19 09:38 Temperature 36.6 C 02/05/19 09:38 Temperature Source Oral 02/05/19 09:38 Pulse 87 02/05/19 09:38 Respiratory Rate 22 02/05/19 09:38 Respiratory Effort 02/05/19 09:42 Respiratory Depth Normal 02/05/19 09:42 Respiratory Pattern Normal 02/05/19 09:42 Blood Pressure 159/89 H 02/05/19 09:38 Blood Pressure Position Supine 02/05/19 09:38 Pulse Oximetry 89 L 02/05/19 09:38 Oxygen Delivery Method Room Air 02/05/19 09:38 Oxygen Flow Rate 0 02/05/19 09:38 Lab/Test Results Lab/Test Results: Laboratory Tests Range/Units 02/05/19 09:45 WBC (4.4-10.8) k/cumm 8.08 RBC (4.50-6.00) m/cumm 3.48 L Hgb (13.5-17.5) g/dL 11.0 L Hct (40.0-50.0) % 33.7 L MCV (80-95) fL 96.8 H MCH (27.0-33.0) pg 31.6 MCHC (32.0-36.0) g/dL 32.6 RDW (11.8-14.1) % 15.9 H Plt Count (130-400) x1000/uL 185 MPV (8.0-11.0) fL 11.2 H Immature Gran % 0.2 Neutrophils % 82.6 Lymphocytes % 7.8 Monocytes % 7.1 Eosinophils % 1.9 Basophils % 0.4 Absolute Neutrophils (1.2-6.7) k/cumm 6.68 Absolute Lymphocytes (1.2-3.4) k/cumm 0.63 L Absolute Monocytes (0.11-0.7) k/cumm 0.57 Absolute Eosinophils (0.0-0.7) k/cumm 0.15 Absolute Basophils (0.0-0.2) k/cumm 0.03
[2019-02-05 10:36] LABS: ALT 17 U/L (12-78); AST 16 U/L (15-37); Albumin 3.6 g/dL (3.4-5.0); Alkaline Phosphatase 82 U/L (46-116); Anion Gap 12.4 mmol/L (3-11); BUN 32 mg/dL (7-18); Bilirubin, Total 0.7 mg/dL (0.2-1.0); CO2 29.6 mmol/L (21.0-32.0); Calcium 8.9 mg/dL (8.5-10.1); Chloride 96 mmol/L (98-107); Glucose 134 mg/dL (70-100); Magnesium 2.6 mg/dL (1.8-2.4); Potassium 3.9 mmol/L (3.5-5.1); Sodium 138 mmol/L (136-145); Total Protein 7.5 g/dL (6.4-8.2); Troponin I 0.05 ng/mL (0.00-0.06)
[2019-02-05 10:42] LABS: CREATININE 6.48 mg/dL (0.70-1.30)
[2019-02-05 10:43] LABS: D-Dimer 1802 ng/mlFEU (<500)
--- NOTE | 2019-02-05 10:46 | DI.RAD_ITS ---
SYMPTOM/DIAGNOSIS: SOB PA AND LATERAL CHEST: Comparison CT scan is 12/23/18. Comparison chest xray is 09/19/18. The cardiac silhouette appears stable. The pulmonary vasculature is within normal limits. There is a new right perihilar infiltrate present suspicious for pneumonia. The lungs are otherwise clear. No effusions are seen. Degenerative changes are present in the spine. IMPRESSION: Right perihilar pneumonia.
[2019-02-05 10:47] LABS: TSH (W/Ref FT4) 3.85 uIU/mL (0.358-3.74)
[2019-02-05 11:05] LABS: FREE T4 1.33 ng/dL (0.76-1.46)
[2019-02-05 11:12] LABS: NT-proBNP > 35000 pg/mL
--- NOTE | 2019-02-05 12:20 | DI.CT_ITS ---
SYMPTOMS/DIAGNOSIS: PNEUMONIA ON CXR, HISTORY NOT CONSISTENT WITH PNEUMONIA, ? CA CT SCAN OF THE CHEST: Noncontrast CT scan of the chest was performed. Comparison chest x-ray is 02/05/19. Comparison CT scan of the chest is 12/23/18. There is atherosclerosis of the thoracic aorta. The heart is enlarged. No significant pericardial effusion is seen. Coronary artery calcifications are present. Mildly enlarged lymph nodes are seen in the mediastinum. There are small bilateral pleural effusions, right greater than left. Bilateral airspace opacities are present, predominantly in the perihilar region of the right upper lobe. There is involvement of the right middle lobe, left lingula and the lower lobes. No pulmonary nodules are seen. The tracheobronchial tree is unremarkable. No pneumothorax is identified. Upper abdominal images show findings of a lap-band procedure. Degenerative changes are seen in the spine. IMPRESSION: 1. Cardiomegaly. 2. Multifocal airspace opacities. Differential considerations include pneumonia including atypical pneumonia, pulmonary edema or hemorrhage. 3. Small bilateral pleural effusions, right greater than left. The findings were discussed with Shannon Pace of the Emergency Department on the date of the examination.
--- NOTE | 2019-02-05 12:38 | NUR.NOTE ---
Nursing Note: pt resting in stretcher no signs of distress, pt updated on plan of care. understanding verbalized.
--- NOTE | 2019-02-05 13:01 | NUR.NOTE ---
Nursing Note: Lab at bedside to obtain blood cultures. Will administer antibiotics when completed.
--- NOTE | 2019-02-05 13:37 | NUR.NOTE ---
Nursing Note: pt provided low potassium food tray
[2019-02-05] MEDS: Normal Saline 250 ML IV (13:40)
[2019-02-05] MEDS: VANCOMYCIN 1,250 MG in Normal Saline 250 ML 166.6666 MG IVPB (14:22)
--- NOTE | 2019-02-05 16:27 | NUR.NOTE ---
Nursing Note: pt resting in bed, no signs of distress; facial expression and body language relaxed. pt states that he has not had any SOB since previous assessment . EMS at bedside to transport patient to [facility].
--- NOTE | 2019-02-11 10:55 | NUR.NOTE ---
Nursing Note: Blood culture result faxed to [facility] [address] Maris Garner
== END 2019-02-05 16:31 | disposition short-term general hospital (02) ==
PROVIDERS: Emergency Provider Physician Assistant; PCP Family Medicine
DX: J18.9 Pneumonia, unspecified organism (principal); Y95 Nosocomial condition; R09.02 Hypoxemia; D63.1 Anemia in chronic kidney disease; E83.41 Hypermagnesemia; N18.6 End stage renal disease; Z99.2 Dependence on renal dialysis; E11.22 Type 2 diabetes mellitus with diabetic chronic kidney disease; Z79.4 Long term (current) use of insulin; I12.0 Hypertensive chronic kidney disease with stage 5 chronic kidney disease or end stage renal disease
CPT/HCPCS: 36410; 36415; 71250; 80053; 87040; 93005; 96361; 96365; 96366; 96368; 99285; 71046; 83735; 83880; 84439; 84443; 84484; 85025; 85379; 93010

== ENCOUNTER 2019-02-27 09:54 | Emergency (ER) | payer MEDICARE, OTHER, SELFPAY ==
[2019-02-27] VITALS (95 sets, daily range): BP systolic 64–187; BP diastolic 22–112; PULSE 40–120; RESP 9–37; TEMP 36.6–36.7; O2SAT 94–100
--- NOTE | 2019-02-27 10:06 | W.ED.GENAD ---
Discharge Plan Disposition Patient Disposition: [facility] Condition: Fair Discharge Details Chief Complaint: AMS/LOC Clinical Impression: Bradycardia, Bigeminy, Hyperkalemia, ESRD (end stage renal disease) on dialysis, Altered mental status Primary Care Provider: Kwaku Rios ED Provider: Josy El Home Meds and New Rx's Prescriptions: No Action aspirin 81 mg tablet,delayed release (DR/EC) 81 mg PO DAILY Qty: 30 RF: 11 cabergoline 0.5 mg tablet 0.5 mg PO .COMPLEX Qty: 8 RF: 11 magnesium oxide 400 mg (241.3 mg magnesium) tablet 400 mg PO DAILY Qty: 30 RF: 11 ondansetron HCl 4 mg tablet 4 mg PO TID PRN (Reason: nausea and vomiting) Qty: 30 RF: 11 (DME) pen needle, diabetic [Lite Touch Insulin Pen Howes] 31 gauge x 3/16 needle See Dose Instructions .ROUTE .MEDSUPPLY Qty: 100 RF: 3 rosuvastatin [Crestor] 10 mg tablet 5 mg PO DAILY Qty: 30 RF: 11 nitroglycerin 0.4 mg tablet, sublingual 0.4 mg SL Q5-15M PRNRF: 0 Humalog KwikPen Insulin 100 unit/mL insulin pen 8 unit SC QAC 90 Days Qty: 15 RF: 3 carvedilol 3.125 mg tablet 9.375 mg PO BID RF: 0 furosemide 80 mg tablet 160 mg PO Q OTHER DAY RF: 0 insulin glargine 100 unit/mL solution 15 unit SC QHS RF: 0 quinapril 20 mg tablet See Rx Instructions PO DAILY RF: 0 trazodone 50 mg tablet 50 mg PO QHS PRNRF: 0 melatonin 3 mg tablet 6 mg PO HS PRNRF: 0 Discharge Data Discharge Date/Time-TO BE ENTERED AT DEPARTURE: 02/27/19 16:16 Medical Decision Making 68yo M w/ a complicated history of end-stage renal disease on dialysis, diabetes, hypertension, high cholesterol, obesity who was discharged from [facility] 2 days ago for pneumonia and CHF who presents from dialysis for altered mental status and bradycardia. Patient apparently thought it was Saturday and was due for his dialysis today. He also states that 1998. He is normally oriented x3 per previous ED records. HR 40s palpable per EMS and on arrival to ED. EKG notes a rate of 80s with bigeminy so suspect HR 40s. BP 122/93. Afebrile. He appears drowsy but able to follow commands. No focal deficits noted. Concern for hyperkalemia. Will give 10 mg albuterol neb and 1 g calcium chloride. [facility] paged for transfer. 1040 --labs reviewed. White blood cell count 5.76. Hemoglobin 10.5. Creatinine 10.11, baseline around 6. Potassium 5.7. Glucose 125. Troponin 0.06. 1050 --case d/w [facility] transfer center -accepts patient for transfer. Accepting physician Dr. Alejandro. Stated that upon discharge, patient's creatinine was 9 and his potassium was 5.4. She stated that patient was noted to have bigeminy while admitted to [facility]. No other medication recommendations. Plan discussed with patient and he is refusing to go to [facility]. Discussed with patient that I do not think that he has capacity make decisions. Patient began screaming and cursing in the room stating I am not fucking going to [facility]. When asked patient to refrain from screaming as there are other patients in the emergency department, he shouted I don't fucking care. Per dialysis, patient also has a restraining order against his . Per [facility] records, patient's also has a restraining order against him for abusive behavior. We contacted [facility] and there is a court order for a no contact rolling with patient's . Discussed case with ED electromedical equipment repairer and agrees that considering patient's acute medical condition requiring transfer to a facility with dialysis and lack of capacity to make decisions, he may need chemical and or physical restraint in order to most appropriately facilitate pt's transfer to a tertiary facility for continuation of care. Monitor noted heart rate 110s. Repeat EKG done which noted frequent PVCs, ventricular bigeminy. Patient denies any acute complaints. 1330 -- Pt verbally aggressive, shouting, cursing and stating I'm not fucking going to [facility]. He said you are a 2 bit hack and not a real doctor and you are a bitch, and get out of my fucking face. He stated I will have your license taken away. He stated that he did not have a good experience with [facility]. He said he wants to stay close to this area. Advised patient that due to his history of dialysis in the setting of bradycardia and altered mental status, he cannot be admitted here. He is also refusing to go to [facility]. Patient appeared slightly more calm after given Ativan but now taken off all his leads and getting dressed. Other staff members know patient confirmed that patient is not at mental status baseline and he is normally oriented x3. He also questioned his nurse in radiology why do you keep following me around. Patient's nurse changed from a female nurse to a male nurse as he seems to be more responsive to male staff. 1430 --Jorge Luis ED nurse manufacturing finance manager spoke with pt in room and pt is now agreeable to go to [facility]. 1515 --d/w [facility] - pt accepted but no beds available for up to 24 hours. 1545 --after another discussion with Jorge Luis, patient is now agreeable to go to [facility]. Medical Records Medical records reviewed: Yes I reviewed the patient's medical records. Lab Data Lab results reviewed: Yes I reviewed the patient's lab results. Laboratory Tests Range/Units 02/27/19 02/27/19 02/27/19 10:06 10:06 10:15 WBC (4.4-10.8) k/cumm 5.76 RBC (4.50-6.00) m/cumm 3.37 L Hgb (13.5-17.5) g/dL 10.5 L Hct (40.0-50.0) % 31.9 L MCV (80-95) fL 94.7 MCH (27.0-33.0) pg 31.2 MCHC (32.0-36.0) g/dL 32.9 RDW (11.8-14.1) % 15.9 H Plt Count (130-400) x1000/uL 158 MPV (8.0-11.0) fL 11.2 H Immature Gran % 0.2 Neutrophils % 69.6 Lymphocytes % 16.0 Monocytes % 9.5 Eosinophils % 4.0 Basophils % 0.7 Absolute Neutrophils (1.2-6.7) k/cumm 4.01 Absolute Lymphocytes (1.2-3.4) k/cumm 0.92 L Absolute Monocytes (0.11-0.7) k/cumm 0.55 Absolute Eosinophils (0.0-0.7) k/cumm 0.23 Absolute Basophils (0.0-0.2) k/cumm 0.04 Sample Site pCO2 (34-47) mmHg pO2 (83-108) mmHg O2 Saturation ABG pH (7.35-7.45) ABG HCO3 (22-28) mmol/L ABG Total CO2 ABG Base Excess (-3-3) mmol/L Oxygen Liter Flow L Sodium (136-145) mmol/L 137 Potassium (3.5-5.1) mmol/L 5.7 H Chloride (98-107) mmol/L 98 Carbon Dioxide (21.0-32.0) mmol/L 29.7 Anion Gap (3-11) mmol/L 9.3 BUN (7-18) mg/dL 57 H Creatinine (0.70-1.30) mg/dL 10.11 H* Estimated GFR/1.73 m2 (mL/min/1.73m2) 5.15 Glucose (70-100) mg/dL 125 H Calcium (8.5-10.1) mg/dL 9.6 Magnesium (1.8-2.4) mg/dL 2.1 Total Bilirubin (0.2-1.0) mg/dL 0.7 AST (15-37) U/L 25 ALT (12-78) U/L 38 Alkaline Phosphatase (46-116) U/L 76 Troponin I (0.00-0.06) ng/mL 0.06 Total Protein (6.4-8.2) g/dL 7.7 Albumin (3.4-5.0) g/dL 3.9 Urine Color Cancelled Urine Clarity Cancelled Urine pH Cancelled Ur Specific Britt Cancelled Urine Protein Cancelled Urine Ketones Cancelled Urine Blood Cancelled Urine Nitrite Cancelled Urine Bilirubin Cancelled Urine Urobilinogen Cancelled Ur Leukocyte Esterase Cancelled Urine Glucose Cancelled Range/Units 02/27/19 10:30 WBC (4.4-10.8) k/cumm RBC (4.50-6.00) m/cumm Hgb (13.5-17.5) g/dL Hct (40.0-50.0) % MCV (80-95) fL MCH (27.0-33.0) pg MCHC (32.0-36.0) g/dL RDW (11.8-14.1) % Plt Count (130-400) x1000/uL MPV (8.0-11.0) fL Immature Gran % Neutrophils % Lymphocytes % Monocytes % Eosinophils % Basophils % Absolute Neutrophils (1.2-6.7) k/cumm Absolute Lymphocytes (1.2-3.4) k/cumm Absolute Monocytes (0.11-0.7) k/cumm Absolute Eosinophils (0.0-0.7) k/cumm Absolute Basophils (0.0-0.2) k/cumm Sample Site Right radial pCO2 (34-47) mmHg 27 L pO2 (83-108) mmHg 198 H O2 Saturation Not Applicable ABG pH (7.35-7.45) 7.56 H ABG HCO3 (22-28) mmol/L 24 ABG Total CO2 Not Applicable ABG Base Excess (-3-3) mmol/L 1.9 Oxygen Liter Flow L 3 Sodium (136-145) mmol/L Potassium (3.5-5.1) mmol/L Chloride (98-107) mmol/L Carbon Dioxide (21.0-32.0) mmol/L Anion Gap (3-11) mmol/L BUN (7-18) mg/dL Creatinine (0.70-1.30) mg/dL Estimated GFR/1.73 m2 (mL/min/1.73m2) Glucose (70-100) mg/dL Calcium (8.5-10.1) mg/dL Magnesium (1.8-2.4) mg/dL Total Bilirubin (0.2-1.0) mg/dL AST (15-37) U/L ALT (12-78) U/L Alkaline Phosphatase (46-116) U/L Troponin I (0.00-0.06) ng/mL Total Protein (6.4-8.2) g/dL Albumin (3.4-5.0) g/dL Urine Color Urine Clarity Urine pH Ur Specific Britt Urine Protein Urine Ketones Urine Blood Urine Nitrite Urine Bilirubin Urine Urobilinogen Ur Leukocyte Esterase Urine Glucose ECG Data Attestation: I personally reviewed and interpreted this ECG (s) as follows: Interpretation: #1 -- rate of 76 - likely more in 40s, sinus, frequent PVCs, bigeminy, TWI in aVL, No acute ST elevation or depression, QTc 452, QRS 100. #2 -- rate of 113, likely more in 60s, frequent PVCs, no acute ST elevation or depression, QTc 472, QRS 94. HPI General Mode of arrival: EMS. Date/Time Provider Initiated Documentation: 02/27/19 10:02. Limitations to Documentation: no limitations. Information obtained by: patient. HPI Narrative: Patient is a 68-year-old male with history of diabetes, hypertension, hyperlipidemia, end-stage renal disease on dialysis, CHF, atrial fibrillation who presents for altered mental status and bradycardia from dialysis. Per EMS, they were called to dialysis for a patient with confusion and bradycardia. Apparently patient is due for dialysis tomorrow but he thought today was Saturday. Patient states he last received dialysis 2 days ago. Patient apparently was discharged from [facility] 2 days ago. Patient states he drove himself to dialysis today. Dialysis center states that patient has not been there for a few weeks due to his inpatient hospitalization at [facility]. Patient denies any headache, blurry vision, chest pain, shortness of breath, abdominal pain or focal weakness. Related Data Home Medications Medication Instructions Recorded Confirmed aspirin 81 mg tablet,delayed 81 mg PO DAILY #30 tab 02/03/19 02/27/19 release cabergoline 0.5 mg tablet 0.5 mg PO .COMPLEX #8 tab 02/03/19 02/27/19 magnesium oxide 400 mg (241.3 mg 400 mg PO DAILY #30 tab 02/03/19 02/05/19 magnesium) tablet ondansetron HCl 4 mg tablet 4 mg PO TID PRN #30 tab 02/03/19 02/05/19 pen needle, diabetic 31 gauge x #100 each 02/03/19 02/05/1910/11 rosuvastatin 10 mg tablet 5 mg PO DAILY #30 tab 02/03/19 02/27/19 nitroglycerin 0.4 mg sublingual 0.4 mg SL Q5-15M PRN 02/09/19 tablet insulin lispro 100 unit/mL 8 unit SC QAC 90 Days #15 ml 02/10/19 subcutaneous pen carvedilol 3.125 mg tablet 9.375 mg PO BID tab 02/25/19 02/27/19 furosemide 80 mg tablet 160 mg PO Q OTHER DAY tab 02/25/19 02/27/19 insulin glargine 100 unit/mL 15 unit SC QHS 02/25/19 02/27/19 subcutaneous solution melatonin 3 mg tablet 6 mg PO HS PRN tab 02/25/19 02/27/19 quinapril 20 mg tablet See Rx Instructions PO DAILY 02/25/19 02/27/19 trazodone 50 mg tablet 50 mg PO QHS PRN 02/25/19 02/27/19 Previous Rx's Medication Instructions Recorded aspirin 81 mg tablet,delayed 81 mg PO DAILY #30 tab 02/03/19 release cabergoline 0.5 mg tablet 0.5 mg PO .COMPLEX #8 tab 02/03/19 magnesium oxide 400 mg (241.3 mg 400 mg PO DAILY #30 tab 02/03/19 magnesium) tablet ondansetron HCl 4 mg tablet 4 mg PO TID PRN #30 tab 02/03/19 pen needle, diabetic 31 gauge x #100 each 02/03/1910/11 rosuvastatin 10 mg tablet 5 mg PO DAILY #30 tab 02/03/19 insulin lispro 100 unit/mL 8 unit SC QAC 90 Days #15 ml 02/10/19 subcutaneous pen Allergies Allergy/AdvReac Type Severity Reaction Status Date / Time atorvastatin AdvReac Intermediate GI upset, Verified 02/27/19 12:15 dizziness oxycodone AdvReac Intermediate nightmares Verified 02/27/19 12:15 General DAIANA: 3 Review of Systems Review of Systems All systems reviewed & are unremarkable except as noted in HPI and below Constitutional Reports as per HPI, Denies chills and Denies fever(s) Eyes Denies blurry vision ENT Denies dizziness, Denies sore throat and Denies throat swelling Cardiovascular Denies chest pain and Denies dyspnea Respiratory Denies cough and Denies dyspnea Gastrointestinal Denies abdominal pain, Denies diarrhea and Denies vomiting Genitourinary Denies hematuria and Denies dysuria Musculoskeletal Denies back pain and Denies numbness Integumentary/Breasts Denies lesions and Denies rash Neurologic Reports confusion, Denies dizziness, Denies focal weakness and Denies numbness Psychiatric Reports confusion Allergic/Immunologic Denies throat swelling [facility] Medical History Atrial fibrillation (Inactive) Atrial flutter (Inactive) Depression (Inactive) ESRD (end stage renal disease) (Inactive) Essential hypertension (Inactive) Hypercholesterolemia (Inactive) Secondary hyperparathyroidism (Inactive) Sleep apnea (Inactive) Type II diabetes mellitus (Chronic) Surgical History Colonoscopy - MAC (08/07/16) Hx of joint replacement (Acute) Hx of tonsillectomy (Chronic) S/P total knee replacement (Acute) Family History Mother Diabetes Cancer Sister Cancer Diabetes Brother Heart disease Father No problems noted. Social History Smoking/Tobacco Use Status: Never Alcohol Intake: never Drug use: Never Substance use type: does not use Household members: spouse Housing: house Number of Children: 0 What type of physical activity do you participate in: none Seatbelt use: always Drive intox or ride w/intox intermodal truck driver: No Do you feel safe at home: Yes Exam Const General: cooperative, ill appearing chronically and lethargic HENMT Head: normal to inspection Face and sinus: normal facial exam Eyes General: appearance normal, both eyes and all related structures Pupils: PERRL EOM: EOM intact bilaterally Neck Neck: normal visual inspection and No submandibular swelling Lymphatic: no lymphadenopathy noted Chest Chest: normal inspection of the chest and no tenderness Resp Effort & Inspection: normal respiratory effort and able to speak in complete sentences Auscultation: clear to auscultation bilaterally Cardio Rate: regular rate Rhythm: regular rhythm GI Inspection: normal to inspection Palpation: soft, not firm, not rigid and nontender Auscultation: normal bowel sounds Back/Spine/Pelvis Thoracic/Lumbar Spine: thoracic and lumbar spine normal to inspection Pelvis: no pain with anterior-posterior compression Skin General skin exam: no rashes or lesions noted Neuro General: alert, awake and oriented Patient Orientation: Person and Place Cranial Nerves: CN's II-XI intact bilaterally Cognition: normal cognition Speech: speech normal Motor: muscle tone normal throughout and strength 5/5 throughout Sensory Exam: no sensory deficits noted Extrem General: normal to inspection, full ROM, normal capillary refill, no calf tenderness bilaterally and no edema Psych Appearance: grossly normal Speech and Movement: speech and movement normal Affect: irritable affect Critical Care Time Total Critical Care Time: 45 (minutes)
[2019-02-27 10:15] LABS: Abs Immature Grans 0.01 k/cumm (0.0-0.09); Absolute Basophil Count 0.04 k/cumm (0.0-0.2); Absolute Eosinophil Count 0.23 k/cumm (0.0-0.7); Absolute Lymphocyte Count 0.92 k/cumm (1.2-3.4); Absolute Monocyte Count 0.55 k/cumm (0.11-0.7); Absolute Neutrophil Count 4.01 k/cumm (1.2-6.7); Basophils % 0.7; HCT 31.9 % (40.0-50.0); HGB 10.5 g/dL (13.5-17.5); Immature Grans % 0.2; Mean Corp. HGB Concentration 32.9 g/dL (32.0-36.0); Mean Corpuscular Hemoglobin 31.2 pg (27.0-33.0); Mean Corpuscular Volume 94.7 fL (80-95); Mean Platelet Volume 11.2 fL (8.0-11.0); Monocytes % 9.5; Neutrophils % 69.6; Platelet Count 158 x1000/uL (130-400); RBC 3.37 m/cumm (4.50-6.00); RBC Distribution Width 15.9 % (11.8-14.1); White Blood Cell Count 5.76 k/cumm (4.4-10.8)
[2019-02-27] MEDS: Calcium Chloride 1000 MG/10 ML SYR IVP (10:21)
[2019-02-27 10:40] LABS: ALT 38 U/L (12-78); AST 25 U/L (15-37); Albumin 3.9 g/dL (3.4-5.0); Alkaline Phosphatase 76 U/L (46-116); Anion Gap 9.3 mmol/L (3-11); BUN 57 mg/dL (7-18); Bilirubin, Total 0.7 mg/dL (0.2-1.0); CO2 29.7 mmol/L (21.0-32.0); Calcium 9.6 mg/dL (8.5-10.1); Chloride 98 mmol/L (98-107); Estimated GFR 5.15 (mL/min/1.73m2); Glucose 125 mg/dL (70-100); Magnesium 2.1 mg/dL (1.8-2.4); Potassium 5.7 mmol/L (3.5-5.1); Sodium 137 mmol/L (136-145); Total Protein 7.7 g/dL (6.4-8.2); Troponin I 0.06 ng/mL (0.00-0.06)
[2019-02-27 10:41] LABS: CREATININE 10.11 mg/dL (0.70-1.30)
[2019-02-27 10:42] LABS: BE 1.9 mmol/L (-3-3); HCO3 24 mmol/L (22-28); pCO2 27 mmHg (34-47); pH 7.56 (7.35-7.45); pO2 198 mmHg (83-108)
[2019-02-27 10:46] LABS: FIO2L 3 L; Site Right Radial
--- NOTE | 2019-02-27 10:50 | NUR.NOTE ---
Nursing Note: pt verbally aggressive with staff. pt continually screaming at staff. Pt screaming at staff stating, you fucking bitch! when nurse attempting to attach patient to monitor and administer medications.
--- NOTE | 2019-02-27 10:58 | NUR.NOTE ---
Nursing Note: pt continues to be aggressive with staff. pt screaming profanity at Doctor, stating, I don't give a shit, I do not want to go to [facility]. Pt states, I do not give a fuck if there are little kids here!
--- NOTE | 2019-02-27 11:00 | NUR.NOTE ---
Nursing Note: pt to CT with RN on monitor.
--- NOTE | 2019-02-27 11:10 | NUR.NOTE ---
Nursing Note: While in x-ray, pt states that RN, Do you have nothing better to do than follow me around all day. RN educated patient that she was his nurse and there to monitor his vital signs while in DI
--- NOTE | 2019-02-27 11:15 | DI.RAD_ITS ---
SYMPTOM/DIAGNOSIS: CONFUSION, H/O ESRD, R/O ACUTE PROCESS CHEST X-RAY: AP lateral. Comparison 02/05/19 The heart is enlarged but stable. Pulmonary vasculature is within normal limits. The lungs are clear. There has been resolution of the right perihilar infiltrate. No effusions or pneumothoraces are identified. IMPRESSION: Cardiomegaly. No acute pulmonary process.
--- NOTE | 2019-02-27 11:37 | DI.CT_ITS ---
SYMPTOM/DIAGNOSIS: CONFUSION, R/O ACUTE CVA CT BRAIN: Noncontrast examination. Comparison 06/09/17 The ventricles and sulci are consistent with the patient's age. No evidence of an acute territorial infarct, hemorrhage, midline shift or mass effect is identified. The visualized paranasal sinuses are clear. No fluid levels are seen. The mastoid air cells are clear. The calvarium is intact. IMPRESSION: No acute intracranial process. The findings were discussed with the Emergency Department on the date of the examination.
[2019-02-27] MEDS: LORazepam 2 MG/ML VIAL 0.5 MG IVP (11:45)
--- NOTE | 2019-02-27 11:46 | NUR.NOTE ---
Nursing Note: pt states that he wants his ex- to be notified that he is in the hospital. Director advised of patients wishes and advised RN that as a do not contact order against him and that she is not to be contacted regarding his care.
--- NOTE | 2019-02-27 11:55 | NUR.NOTE ---
Nursing Note: pt states that he wants a lunch tray. Low potassium/renal diet ordered.
--- NOTE | 2019-02-27 12:15 | NUR.NOTE ---
NKDA per [facility] records Nursing Note:
--- NOTE | 2019-02-27 12:24 | NUR.NOTE ---
Pt confused. Used med list from [facility]. Nursing Note:
--- NOTE | 2019-02-27 12:31 | NUR.NOTE ---
Nursing Note: pt set up for lunch
--- NOTE | 2019-02-27 13:42 | NUR.NOTE ---
Nursing Note: This com writer was present for a conversation between provider and patient about his need for transfer to tertiary care facility. Patient was informed that he is not able to leave the hospital because of his mental status/ confusion. He began to yell loudly at the provider using profanity I am not fucking going to that hell hole You are a poor excuse for a DR, you are not my Dr and i do no want you as my Dr If you restrain me i will [place] you and this hospital and get your medical license. Patients body movements in the bed were threatening moving toward Dr. El moving his arms and fists in the Air. He removed all of the monitoring equipment from his body throwing it off him onto the floor.
--- NOTE | 2019-02-27 13:43 | NUR.NOTE ---
Nursing Note: Two RN's and MD at bedside. pt verbally aggressive with staff, screaming and threatening doctor. pt unable to be redirected.
--- NOTE | 2019-02-27 13:55 | NUR.NOTE ---
Nursing Note: pt dressed and waving goodbye to ER staff. pt sitting on stretcher again at this time. Code nevin called
--- NOTE | 2019-02-27 13:59 | NUR.NOTE ---
Nursing Note: nurse director and RN to bedside
--- NOTE | 2019-02-27 14:29 | NUR.NOTE ---
Nursing Note: Nurse to nurse handover. Report given to Ryland RN to assume care.
--- NOTE | 2019-02-27 15:21 | NUR.NOTE ---
Nursing Note: 11:30 20G right hand. Started by ED
== END 2019-02-27 16:16 | disposition short-term general hospital (02) ==
PROVIDERS: Emergency Provider Physician Assistant; PCP Family Medicine
DX: R41.82 Altered mental status, unspecified (principal); R00.1 Bradycardia, unspecified; R00.8 Other abnormalities of heart beat; E87.5 Hyperkalemia; N18.6 End stage renal disease; Z99.2 Dependence on renal dialysis; E11.22 Type 2 diabetes mellitus with diabetic chronic kidney disease; Z79.4 Long term (current) use of insulin; I13.0 Hypertensive heart and chronic kidney disease with heart failure and stage 1 through stage 4 chronic kidney disease, or unspecified chronic kidney disease; I50.9 Heart failure, unspecified
CPT/HCPCS: 36415; 80053; 82805; 93005; 96374; 96375; 99291; 70450; 71046; 81003; 83735; 84484; 85025; 93010; J2060; J7611

== ENCOUNTER 2019-03-11 02:14 | Emergency (ER) | payer MEDICARE, OTHER, SELFPAY | END 2019-03-11 02:18 | LOC: ER 02:16 | PROVIDERS: PCP Family Medicine | DX: Z53.21 Procedure and treatment not carried out due to patient leaving prior to being seen by health care provider (principal) ==

== ENCOUNTER 2019-05-23 11:29 | Emergency (ER) | payer MEDICARE, OTHER, SELFPAY ==
[2019-05-23] VITALS (85 sets, daily range): BP systolic 121–171; BP diastolic 62–131; PULSE 52–125; RESP 11–28; TEMP 36.5–36.7; O2SAT 88–100
[2019-05-23] MEDS: Normal Saline Flush 10 ML SYR IVP (11:46)
--- NOTE | 2019-05-23 11:47 | DI.CT_ITS ---
EXAM: CT HEAD WO CLINICAL HISTORY: altered mental status at dialysis TECHNIQUE: The exam was performed according to the usual protocol without contrast. COMPARISON: CT HEAD WO from 02/27/2019 FINDINGS: Ventricles and sulci are consistent with the patient's age. There are areas of decreased attenuation in the white matter most consistent with small vessel ischemic disease. No acute intracranial hemor rhage, midline shift, or mass effect is identified. The ventricles are intact. The basilar cisterns are patent. The visualized paranasal sinuses are clear as are the mastoid air cells. The calvarium is intact. There is patient motion artifact present. IMPRESSION: No acute intracranial process.
--- NOTE | 2019-05-23 11:48 | ED.GENADUL_ITS ---
Discharge Plan Disposition Patient Disposition: [facility] Condition: Serious Discharge Details Chief Complaint: AMS/LOC Clinical Impression: Hematochezia, Atrial fibrillation and flutter, Change in mental status Primary Care Provider: Kwaku Rios ED Provider: Rupesh De León Home Meds and New Rx's Prescriptions: No Action aspirin 81 mg tablet,delayed release (DR/EC) 81 mg PO DAILY Qty: 30 RF: 11 Lantus Solostar U-100 Insulin 100 unit/mL (3 mL) insulin pen 15 unit SC QHS Qty: 15 RF: 11 magnesium oxide 400 mg (241.3 mg magnesium) tablet 400 mg PO DAILY Qty: 30 RF: 11 melatonin 3 mg tablet 6 mg PO HS PRN (Reason: sleep) Qty: 60 RF: 11 tramadol 50 mg tablet 50 mg PO Q12H PRN (Reason: pain) Qty: 56 RF: 1 (DME) pen needle, diabetic [Lite Touch Insulin Pen Mccaus[place]] 31 gauge x 3/16 needle See Dose Instructions .ROUTE .MEDSUPPLY Qty: 100 RF: 3 nitroglycerin 0.4 mg tablet, sublingual 0.4 mg SL Q5-15M PRNRF: 0 (DME) blood sugar diagnostic Strip See Rx Instructions .ROUTE .MEDSUPPLY Qty: 100 RF: 12 (DME) blood-glucose meter Kit See Rx Instructions .ROUTE .MEDSUPPLY Qty: 1 RF: 0 (DME) lancets [Lancets,Ultra Thin] Misc See Rx Instructions .ROUTE .MEDSUPPLY Qty: 100 RF: 12 (DME) plister nette Qty: 1 RF: 0 cabergoline 0.5 mg tablet 0.5 mg PO .COMPLEX Qty: 8 RF: 11 calcium acetate 667 mg Capsule 1,334 mg PO TID RF: 0 diltiazem HCl [Cardizem] 60 mg Tablet 180 mg PO DAILY RF: 0 carvedilol 3.125 mg tablet 3.125 mg PO BID RF: 0 warfarin 5 mg Tablet 5 mg PO DAILY RF: 0 rosuvastatin [Crestor] 10 mg tablet 10 mg PO DAILY RF: 0 insulin lispro [Humalog KwikPen Insulin] 100 unit/mL insulin pen 4 unit SC QAC RF: 0 furosemide 80 mg tablet 40 - 60 mg PO DIRECTED RF: 0 amlodipine [Norvasc] 10 mg Tablet 10 mg PO DAILY RF: 0 quinapril 20 mg tablet 20 mg PO DAILY RF: 0 sevelamer carbonate 800 mg Tablet 1,600 mg PO TID RF: 0 trazodone 50 mg tablet 100 mg PO QHS PRN (Reason: sleep) RF: 0 Medical Decision Making 68-year-old male with history of diabetes, end-stage renal disease, A. fib, presents from dialysis with transient altered's mental status changes. Dialysis reports that he had missed 3 recent appointments (05/16,,) and was found to be 2.3 kg up on his weight today. He arrives with blood pressure 143/93, pulse 77, respirations 20, temp 36.7, O2 sat 98% on room air. After arrival he had a large volume bloody bowel movement. He states he has not noticed recent change to stool. He is anticoagulated for his atrial fibrillation. He does seem somewhat confused. He is not a particularly good historian, therefore broad differential diagnosis considered. Referred for CT scan of the head and chest x-ray. The imaging studies are unremarkable. Patient has a baseline hemoglobin approximately 11. 9.3 today. Troponin is elevated at 0.15. Chemistries with sodium 139 potassium 4.3, chloride 100, bica rb 26. BUN 46, creatinine 5.7. INR is 1.4. The patient's clinical course notable for both the second bloody bowel movement as well as progressive delirium to which he states he does not need to be in the hospital and states he was not at dialysis earlier today. He has a history of similar presentations in the past. He was given Ativan for anxiolysis. Patient also appeared to have transient rapid atrial flutter on the monitor, but the time EKG was obtained at 3:39 PM, he had self converted back to normal sinus rhythm. At approximately 4:15 PM the patient did revert to rapid A. fib flutter at approximate 120 bpm. He was placed on diltiazem drip for rate control. Rhythm strip appears to convert to sinus approximately 5:20 PM. As the patient has positive troponinemia, positive GI bleed, mental status changes and a history of CHF, cardiomyopathy, A. fib, as well as hemodialysis (status post normal run today) I did discuss the case with on-call hospitalist Dr. Castillo at [facility]. He states he feels the patient does not meet criteria for transfer given that he had normal dialysis today, next is due on Saturday. He recommends admission to local [facility] with further trending of the troponin, hemoglobin, as well as ongoing observation of the patient's mild delirium which he has had in the past. At approximately 600pm, the patient dislodged his IV. Bedside sitter ordered, IV restarted. Patient in NSR and Diltiazem decreased to 5mg/h. Case discussed with Dr Mckee who also discussed with [facility] and patient accepted in transfer to their hospitalist service. The patient has had some recent discord with his , but she remains his healthcare proxy as per document reviewed from August 21, 2011. He does not have decision-making capacity at this time. She presented to the bedside and states she is in agreement with transfer/admission of the patient. Lab Data Lab results reviewed: Yes I reviewed the patient's lab results. Labs: Laboratory Results - last 24 hr 05/23/19 05/23/19 05/23/19 11:44 11:44 11:44 WBC 5.28 RBC 2.85 L Hgb 9.3 L Hct 27.5 L MCV 96.5 H MCH 32.6 MCHC 33.8 RDW 15.6 H Plt Count 157 MPV 10.6 Immature Gran % 0.4 Neutrophils % 80.4 Lymphocytes % 9.8 Monocytes % 8.1 Eosinophils % 1.1 Basophils % 0.2 Absolute Neutrophils 4.24 Absolute Lymphocytes 0.52 L Absolute Monocytes 0.43 Absolute Eosinophils 0.06 Absolute Basophils 0.01 PT INR Sodium 139 Potassium 4.3 Chloride 100 Carbon Dioxide 26.7 Anion Gap 12.3 H BUN 46 H Creatinine 5.74 H* Estimated GFR/1.73 m2 9.89 Glucose 88 Calcium 8.7 Magnesium 2.0 Total Bilirubin 1.0 AST 53 H ALT 177 H Alkaline Phosphatase 67 Ammonia 16 Troponin I 0.15 H* Total Protein 6.6 Albumin 3.4 TSH 4.08 H Patient ABO/Rh Antibody Screen 05/23/19 05/23/19 05/23/19 11:44 12:25 12:25 WBC RBC Hgb Hct MCV MCH MCHC RDW Plt Count MPV Immature Gran % Neutrophils % Lymphocytes % Monocytes % Eosinophils % Basophils % Absolute Neutrophils Absolute Lymphocytes Absolute Monocytes Absolute Eosinophils Absolute Basophils PT Cancelled 14.0 H INR Cancelled 1.4 H Sodium Potassium Chloride Carbon Dioxide Anion Gap BUN Creatinine Estimated GFR/1.73 m2 Glucose Calcium Magnesium Total Bilirubin AST ALT Alkaline Phosphatase Ammonia Troponin I Total Protein Albumin TSH Patient ABO/Rh O Positive Antibody Screen Negative 05/23/19 05/23/19 15:20 16:30 WBC 6.30 RBC 2.69 L Hgb 8.9 L Hct 26.6 L MCV 98.9 H MCH 33.1 H MCHC 33.5 RDW 16.0 H Plt Count 150 MPV 10.3 Immature Gran % 0.2 Neutrophils % 78.1 Lymphocytes % 10.2 Monocytes % 9.7 Eosinophils % 1.3 Basophils % 0.5 Absolute Neutrophils 4.93 Absolute Lymphocytes 0.64 L Absolute Monocytes 0.61 Absolute Eosinophils 0.08 Absolute Basophils 0.03 PT INR Sodium Potassium Chloride Carbon Dioxide Anion Gap BUN Creatinine Estimated GFR/1.73 m2 Glucose Calcium Magnesium Total Bilirubin AST ALT Alkaline Phosphatase Ammonia Troponin I 0.17 H* Total Protein Albumin TSH Patient ABO/Rh Antibody Screen ECG Data Attestation: I personally reviewed and interpreted this ECG (s) as follows: Interpretation: Normal sinus rhythm with a rate of 78, the QRS is narrow, there is nonspecific ST changes nearly throughout with T wave inversions in leads I, 2, V4 through V6. Similar to previous HPI General Mode of arrival: EMS . Date/Time Provider Initiated Documentation: 05/23/19 11:48 . Limitations to Documentation: no limitations . Information obtained by: patient and EMS . History of Present Illness 68 year old M presents to the emergency department with the chief complaint of Transient altered mental status at dialysis. Pt states he feels improved, described as mild, Patient reports no radiation. Patient started experiencing this day(s) and it has been constant. No relieving factors improve symptom(s), No exacerbating factors reported . Patient notes no other symptoms.. Patient did receive the following treatments prior to arrival, none Related Data Home Medications Medication Instructions Recorded Confirmed pen needle, diabetic 31 gauge x #100 each 02/03/19 02/05/1910/11 nitroglycerin 0.4 mg sublingual 0.4 mg SL Q5-15M PRN 02/09/19 tablet aspirin 81 mg tablet,delayed 81 mg PO DAILY #30 tab 03/06/19 05/23/19 release insulin glargine 100 unit/mL (3 15 unit SC QHS #15 ml 03/06/19 05/23/19 mL) subcutaneous pen magnesium oxide 400 mg (241.3 mg 400 mg PO DAILY #30 tab 03/06/19 05/23/19 magnesium) tablet melatonin 3 mg tablet 6 mg PO HS PRN #60 tab 03/06/19 03/06/19 tramadol 50 mg tablet 50 mg PO Q12H PRN #56 tab 03/06/19 03/06/19 blood sugar diagnostic #100 each 03/19/19 blood-glucose meter #1 each 03/19/19 lancets #100 each 03/19/19 cabergoline 0.5 mg tablet 0.5 mg PO .COMPLEX #8 tab 04/13/19 05/23/19 plister nette #1 ea 04/13/19 amlodipine [Norvasc] 10 mg PO DAILY 05/23/19 05/23/19 calcium acetate 1,334 mg PO TID 05/23/19 05/23/19 carvedilol 3.125 mg PO BID 05/23/19 05/23/19 diltiazem HCl [Cardizem] 180 mg PO DAILY 05/23/19 05/23/19 furosemide 40 - 60 mg PO DIRECTED 05/23/19 05/23/19 insulin lispro [Humalog KwikPen 4 unit SC QAC 05/23/19 05/23/19 Insulin] quinapril 20 mg PO DAILY 05/23/19 05/23/19 rosuvastatin [Crestor] 10 mg PO DAILY 05/23/19 05/23/19 sevelamer carbonate 1,600 mg PO TID 05/23/19 05/23/19 trazodone 100 mg PO QHS PRN 05/23/19 05/23/19 warfarin 5 mg PO DAILY 05/23/19 05/23/19 Previous Rx's Medication Instructions Recorded pen needle, diabetic 31 gauge x #100 each 02/03/1910/11 aspirin 81 mg tablet,delayed 81 mg PO DAILY #30 tab 03/06/19 release insulin glargine 100 unit/mL (3 15 unit SC QHS #15 ml 03/06/19 mL) subcutaneous pen magnesium oxide 400 mg (241.3 mg 400 mg PO DAILY #30 tab 03/06/19 magnesium) tablet melatonin 3 mg tablet 6 mg PO HS PRN #60 tab 03/06/19 tramadol 50 mg tablet 50 mg PO Q12H PRN #56 tab 03/06/19 blood sugar diagnostic #100 each 03/19/19 blood-glucose meter #1 each 03/19/19 lancets #100 each 03/19/19 cabergoline 0.5 mg tablet 0.5 mg PO .COMPLEX #8 tab 04/13/19 Allergies Allergy/AdvReac Type Severity Reaction Status Date / Time atorvastatin AdvReac Intermediate GI upset, Verified 05/23/19 11:35 dizziness oxycodone AdvReac Intermediate nightmares Verified 05/23/19 11:35 General Stated Complaint: AMS/LOC DAIANA: 2 Review of Systems Narrative: Denies recent illness. He eating and drinking per routine, still makes urine. No fever. No chest pain. No headache. 8 systems reviewed and otherwise negative per patient. [facility] Medical History Atrial fibrillation (Inactive) Echo 02/06/19 at [facility] Atrial fibrillation and flutter (Acute) Atrial flutter (Inactive) Depression (Inactive) ESRD (end stage renal disease) (Inactive) Essential hypertension (Inactive) Hypercholesterolemia (Inactive) Secondary hyperparathyroidism (Inactive) Sleep apnea (Inactive) Type II diabetes mellitus (Chronic) Surgical History Colonoscopy - MAC (08/07/16) Hx of joint replacement (Acute) Hx of tonsillectomy (Chronic) S/P total knee replacement (Acute) Family History Mother Diabetes Cancer Sister Cancer Diabetes Brother Heart disease Father No problems noted. 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 Not oriented. Responds to questions.. HEAD: Normocephalic, atraumatic ENT: Mucous membranes moist, oropharynx unremarkable, External ear exam unremarkable EYES: PERRL, EOMI NECK: Full ROM, no NICKOLAS, no menigismus CHEST/RESP: Nontender, clear to auscultation bilateral, no wheeze/rhonchi/rales CARDIOVASCULAR: RRR, no murmur, rub bozena. 2+ Rad pulse bilateral ABDOMEN: Soft, nontender, no mass. +Bowel sounds EXT: Full ROM, no edema, no rash. Left upper extremity AV fistula with thrill Neuro: Grossly normal neurologic exam, conversant, interactive. Psych: Bizarre affect. Course Vital Signs Vital signs: Vital Signs Temperature 36.7 C 05/23/19 11:29 Pulse 77 05/23/19 11:29 Respiratory Rate 20 05/23/19 11:29 Blood Pressure 143/93 H 05/23/19 11:29 Pulse Oximetry 98 05/23/19 11:29 Temperature 36.7 C 05/23/19 11:29 Temperature Source Skin 05/23/19 11:29 Pulse 77 05/23/19 11:29 Respiratory Rate 20 05/23/19 11:37 Respiratory Effort 05/23/19 11:37 Respiratory Depth Normal 05/23/19 11:37 Respiratory Pattern Normal 05/23/19 11:37 Blood Pressure 143/93 H 05/23/19 11:29 Pulse Oximetry 98 05/23/19 11:29 Oxygen Delivery Method Room Air 05/23/19 11:29 Oxygen Flow Rate 0 05/23/19 11:29 Pain Level 0 05/23/19 11:29
[2019-05-23 12:04] LABS: Abs Immature Grans 0.02 k/cumm (0.0-0.09); Absolute Basophil Count 0.01 k/cumm (0.0-0.2); Absolute Eosinophil Count 0.06 k/cumm (0.0-0.7); Absolute Lymphocyte Count 0.52 k/cumm (1.2-3.4); Absolute Monocyte Count 0.43 k/cumm (0.11-0.7); Absolute Neutrophil Count 4.24 k/cumm (1.2-6.7); Basophils % 0.2; Eosinophils % 1.1; HCT 27.5 % (40.0-50.0); HGB 9.3 g/dL (13.5-17.5); Immature Grans % 0.4; Lymphocytes % 9.8; Mean Corp. HGB Concentration 33.8 g/dL (32.0-36.0); Mean Corpuscular Hemoglobin 32.6 pg (27.0-33.0); Mean Corpuscular Volume 96.5 fL (80-95); Mean Platelet Volume 10.6 fL (8.0-11.0); Monocytes % 8.1; Neutrophils % 80.4; Platelet Count 157 x1000/uL (130-400); RBC 2.85 m/cumm (4.50-6.00); RBC Distribution Width 15.6 % (11.8-14.1); White Blood Cell Count 5.28 k/cumm (4.4-10.8)
[2019-05-23 12:14] LABS: Ammonia 16 umol/L (11-32)
[2019-05-23 12:26] LABS: ALT 177 U/L (16-63); AST 53 U/L (15-37); Albumin 3.4 g/dL (3.4-5.0); Alkaline Phosphatase 67 U/L (46-116); Anion Gap 12.3 mmol/L (3-11); BUN 46 mg/dL (7-18); CO2 26.7 mmol/L (21.0-32.0); Calcium 8.7 mg/dL (8.5-10.1); Chloride 100 mmol/L (98-107); Estimated GFR 9.89 (mL/min/1.73m2); Glucose 88 mg/dL (70-100); Potassium 4.3 mmol/L (3.5-5.1); Sodium 139 mmol/L (136-145); TSH 4.08 uIU/mL (0.36-3.74); Total Protein 6.6 g/dL (6.4-8.2)
[2019-05-23 12:27] LABS: CREATININE 5.74 mg/dL (0.70-1.30); Troponin I 0.15 ng/mL (0.00-0.06)
[2019-05-23 12:44] LABS: INR 1.4 (0.9-1.1)
--- NOTE | 2019-05-23 13:01 | DI.RAD_ITS ---
EXAM: XR CHEST 2V PA LATERAL INDICATION: transient altered mental status at dialysis. COMPARISON: XR CHEST 2V PA LATERAL from 02/27/2019 TECHNIQUE: 2D digital imaging was performed. FINDINGS: There is stable cardiomegaly. There is stable tortuosity and ectasia of the thoracic aorta. The trip gs are clear. No effusions or pneumothoraces are identified. There are stable degenerative changes in the spine. IMPRESSION: No acute pulmonary process.
--- NOTE | 2019-05-23 13:34 | DI.VRAD_ITS ---
PROCEDURE INFORMATION: Exam: CT Head Without Contrast Exam date and time: 05/23/2019 11:48 AM Clinical history: 68 years old, male; Other: Altered mental status at dialysis TECHNIQUE: Imaging protocol: Computed tomography of the head without contrast. Radiation optimization: All CT scans at this facility use at least one of these dose optimization techniques: automated exposure control; mA and/or kV adjustment per patient size (includes targeted exams where dose is matched to clinical indication); or iterative reconstruction. COMPARISON: CT HEAD WO 02/27/2019 11:25 AM FINDINGS: Brain: Central and cortical brain atrophy evident, appropriate for patient age. There is nonspecific periventricular low attenuation, likely microangiopathic disease. No acute intracranial hemorrhage. Ventricles: Normal. No ventriculomegaly. Bones/joints: Unremarkable. No acute fracture. Sinuses: Visualized sinuses are unremarkable. No fluid levels. Mastoid air cells: Visualized mastoid air cells are well aerated. Soft tissues: Unremarkable. IMPRESSION: No acute intracranial abnormality. Dictated and Authenticated by: Oneida Castro MD. Ordering:LAILA Goddard MD
--- NOTE | 2019-05-23 13:35 | DI.VRAD_ITS ---
PROCEDURE INFORMATION: Exam: XR Chest, 2 Views Exam date and time: 05/23/2019 1:00 PM Clinical history: 68 years old, male; Other: Transient altered mental status TECHNIQUE: Imaging protocol: XR of the chest Views: 2 views. COMPARISON: CR XR CHEST 2V PA LATERAL 02/27/2019 11:09 AM FINDINGS: Lungs: No focal consolidation. Pleural space: Unremarkable. No pleural effusion. No pneumothorax. Heart/Mediastinum: Stable cardiomegaly. Vasculature: Aortic ectasia. Bones/joints: Degenerative changes right shoulder. IMPRESSION: No acute process. Dictated and Authenticated by: Oneida Castro MD. Ordering:LAILA Goddard MD
[2019-05-23] MEDS: LORazepam 2 MG/ML VIAL 1 MG IVP (15:21)
[2019-05-23] MEDS: dilTIAZem 25 MG/5 ML VIAL 5 MG IVP (16:35)
[2019-05-23 16:36] LABS: Abs Immature Grans 0.01 k/cumm (0.0-0.09); Absolute Basophil Count 0.03 k/cumm (0.0-0.2); Absolute Eosinophil Count 0.08 k/cumm (0.0-0.7); Absolute Lymphocyte Count 0.64 k/cumm (1.2-3.4); Absolute Monocyte Count 0.61 k/cumm (0.11-0.7); Absolute Neutrophil Count 4.93 k/cumm (1.2-6.7); Basophils % 0.5; Eosinophils % 1.3; HCT 26.6 % (40.0-50.0); HGB 8.9 g/dL (13.5-17.5); Immature Grans % 0.2; Lymphocytes % 10.2; Mean Corp. HGB Concentration 33.5 g/dL (32.0-36.0); Mean Corpuscular Hemoglobin 33.1 pg (27.0-33.0); Mean Corpuscular Volume 98.9 fL (80-95); Mean Platelet Volume 10.3 fL (8.0-11.0); Monocytes % 9.7; Neutrophils % 78.1; Platelet Count 150 x1000/uL (130-400); RBC 2.69 m/cumm (4.50-6.00)
[2019-05-23] MEDS: dilTIAZem 125 MG in Normal Saline 100 ML IV (16:40)
[2019-05-23 17:04] LABS: Troponin I 0.17 ng/mL (0.00-0.06)
--- NOTE | 2019-05-23 18:18 | PDOC.ERCMPRO ---
- If Service Date Differs Date of service: 05/23/19 Time of Service: 18:18 Care Management Progress Note S/O: CM met with patient in the ED he is alert not oriented. Kofi states that he wants his sister, and provides his estranged spouse contact number. Kofi is confused he states he does not know how he came to the ED, then reports his sister brought him. Per report Kofi missed his dialysis throughout the week until today. Kofi states he does not want to be transferred to another facility he reports that he feels fine. When CM reviewed medical concerns including heme positive stool and the risk of returning home without treatment including he states I don't care if I . Kofi does not appear safe to make decisions at this time due to his confused state and inability to reorient. CM contacted his spouse (Carmen) who is the only contact listed and the only number provided by Kofi. Carmen states he lives alone in her home. She reports that she is his only contact and his sister a few years ago. Carmen states that there is no longer a restraining order and she can come to the hospital to assist with decision making. CM requested Carmen come and provide support to patient. P: Anticipate Kofi will be transferred to tertiary center pending test results and medical assessment.
== END 2019-05-23 19:50 | disposition short-term general hospital (02) ==
PROVIDERS: Emergency Provider Emergency Medicine; PCP Family Medicine
DX: K92.1 Melena (principal); I48.91 Unspecified atrial fibrillation; I48.92 Unspecified atrial flutter; R41.82 Altered mental status, unspecified; E11.22 Type 2 diabetes mellitus with diabetic chronic kidney disease; I12.0 Hypertensive chronic kidney disease with stage 5 chronic kidney disease or end stage renal disease; N18.6 End stage renal disease; Z79.01 Long term (current) use of anticoagulants
CPT/HCPCS: 36415; 80053; 86850; 86900; 86901; 93005; 96365; 96366; 96375; 96376; 99285; 70450; 71046; 82140; 83735; 84443; 84484; 85025; 85610; 93010; J2060

== ENCOUNTER 2019-06-01 11:08 | Emergency (ER) | payer MEDICARE, OTHER, SELFPAY ==
[2019-06-01] VITALS (32 sets, daily range): BP systolic 118–149; BP diastolic 64–113; PULSE 57–83; RESP 9–30; TEMP 36.6–36.8; O2SAT 98–100
--- NOTE | 2019-06-01 11:18 | ED.GENADUL_ITS ---
Discharge Plan Discharge Details Chief Complaint: Nk/Back Pain Primary Care Provider: Kwaku Rios ED Provider: Ana Tobias Home Meds and New Rx's Prescriptions: No Action aspirin 81 mg tablet,delayed release (DR/EC) 81 mg PO DAILY Qty: 30 RF: 11 Lantus Solostar U-100 Insulin 100 unit/mL (3 mL) insulin pen 15 unit SC QHS Qty: 15 RF: 11 magnesium oxide 400 mg (241.3 mg magnesium) tablet 400 mg PO DAILY Qty: 30 RF: 11 melatonin 3 mg tablet 6 mg PO HS PRN (Reason: sleep) Qty: 60 RF: 11 tramadol 50 mg tablet 50 mg PO Q12H PRN (Reason: pain) Qty: 56 RF: 1 (DME) pen needle, diabetic [Lite Touch Insulin Pen Norman] 31 gauge x 3/16 needle See Dose Instructions .ROUTE .MEDSUPPLY Qty: 100 RF: 3 nitroglycerin 0.4 mg tablet, sublingual 0.4 mg SL Q5-15M PRNRF: 0 (DME) blood sugar diagnostic Strip See Rx Instructions .ROUTE .MEDSUPPLY Qty: 100 RF: 12 (DME) blood-glucose meter Kit See Rx Instructions .ROUTE .MEDSUPPLY Qty: 1 RF: 0 (DME) lancets [Lancets,Ultra Thin] Misc See Rx Instructions .ROUTE .MEDSUPPLY Qty: 100 RF: 12 (DME) plister nette Qty: 1 RF: 0 cabergoline 0.5 mg tablet 0.5 mg PO .COMPLEX Qty: 8 RF: 11 calcium acetate 667 mg Capsule 1,334 mg PO TID RF: 0 diltiazem HCl [Cardizem] 60 mg Tablet 180 mg PO DAILY RF: 0 carvedilol 3.125 mg tablet 3.125 mg PO BID RF: 0 warfarin 5 mg Tablet 5 mg PO DAILY RF: 0 rosuvastatin [Crestor] 10 mg tablet 10 mg PO DAILY RF: 0 insulin lispro [Humalog KwikPen Insulin] 100 unit/mL insulin pen 4 unit SC QAC RF: 0 furosemide 80 mg tablet 40 - 60 mg PO DIRECTED RF: 0 amlodipine [Norvasc] 10 mg Tablet 10 mg PO DAILY RF: 0 quinapril 20 mg tablet 20 mg PO DAILY RF: 0 sevelamer carbonate 800 mg Tablet 1,600 mg PO TID RF: 0 trazodone 50 mg tablet 100 mg PO QHS PRN (Reason: sleep) RF: 0 Discharge Data Discharge Date/Time-TO BE ENTERED AT DEPARTURE: 06/01/19 14:24 Medical Decision Making Kofi Moraes is a 68-year-old man with a history of insulin dependent diabetes, end-stage renal disease on dialysis, CHF, atrial fibrillation who presented to the emergency department with chronic lower right-sided back pain ongoing for months, no worse in severity today. On exam patient is somewhat chronically ill-appearing but acutely nontoxic and in no distress. Benign abdominal exam. Tenderness over right SI joint without overlying skin changes, no crepitus or deformity. Unclear etiology of pain at this time, patient with multiple medical comorbidities. Concern for likely arthritis, however cannot rule out other bony lesion, infectious process. Plan for screening labs, anticipate imaging. Exam/history is not consistent with sepsis, DVT, other acute emergent vascular pathology. Patient hemoglobin 4.9. Patient was recently seen in the [facility] emergency department for upper GI bleed with melena, was transferred to [facility]. Review of [facility] discharge summary shows that patient underwent cauterization of duodenal ulcers, was discharged home on 05/27. On further discussion with the patient, he reports that he has had black tarry stools since the day he was discharged from [facility]. There has been no change in stool frequency or consistency since his discharge. He denies any other bleeding. Patient states he has not been taking his Coumadin since he was told to stop it at [facility]. He does state to me now that he has been feeling somewhat tired, but has had no chest pain, no shortness of breath or dyspnea with exertion worse than baseline, no lightheadedness. Call placed to [facility] transfer center, awaiting callback. [address] scanner at [facility] cannot inject dye at this time due to mechanical malfunction, will hold imaging testing at this time given severe anemia and upper GI bleed. Patient with 18-gauge EJ, 18-gauge to the right AC, 20-gauge the right hand. Patient accepted by Dr. Prince at [facility] to stepdown unit with emergent GI evaluation, details of patient presentation and results discussed with both medicine and GI teams at [facility]. Patient remains essentially asymptomatic, states that he feels very well other than his chronic low back pain. Plan for emergent transfer, patient receiving second unit of PRBCs upon leaving the emergency department with medics. Clinical impression: upper GI bleed, severe anemia Disposition: [facility] Medical Records Medical records reviewed: Yes I reviewed the patient's medical records. Lab Data Lab results reviewed: Yes I reviewed the patient's lab results. Labs: Laboratory Tests Range/Units 06/01/19 06/01/19 06/01/19 11:48 11:48 11:48 WBC (4.4-10.8) k/cumm 9.41 RBC (4.50-6.00) m/cumm 1.49 L Hgb (13.5-17.5) g/dL 4.9 L* Hct (40.0-50.0) % 16.1 L* MCV (80-95) fL 108.1 H MCH (27.0-33.0) pg 32.9 MCHC (32.0-36.0) g/dL 30.4 L RDW (11.8-14.1) % 22.1 H Plt Count (130-400) x1000/uL 184 MPV (8.0-11.0) fL 10.1 Immature Gran % 0.2 Neutrophils % 85.3 Lymphocytes % 6.2 Monocytes % 7.2 Eosinophils % 0.9 Basophils % 0.2 Absolute Neutrophils (1.2-6.7) k/cumm 8.03 H Absolute Lymphocytes (1.2-3.4) k/cumm 0.58 L Absolute Monocytes (0.11-0.7) k/cumm 0.68 Absolute Eosinophils (0.0-0.7) k/cumm 0.08 Absolute Basophils (0.0-0.2) k/cumm 0.02 Differential Comment Agrees w/ instrument RBC Morphology See below Polychromasia Present Hypochromasia 3+ Poikilocytosis 2+ Basophilic Stippling Present Anisocytosis 3+ Macrocytosis 2+ ESR (1-20) mm/hr 20 PT (9.3-11.0) sec 11.8 H INR (0.9-1.1) 1.2 H Sodium (136-145) mmol/L 139 Potassium (3.5-5.1) mmol/L 4.3 Chloride (98-107) mmol/L 100 Carbon Dioxide (21.0-32.0) mmol/L 26.6 Anion Gap (3-11) mmol/L 12.4 H BUN (7-18) mg/dL 55 H Creatinine (0.70-1.30) mg/dL 6.01 H* Estimated GFR/1.73 m2 (mL/min/1.73m2) 9.38 Glucose (70-100) mg/dL 151 H Calcium (8.5-10.1) mg/dL 7.7 L Total Bilirubin (0.2-1.0) mg/dL 0.4 AST (15-37) U/L 21 ALT (16-63) U/L 29 Alkaline Phosphatase (46-116) U/L 45 L Troponin I (0.00-0.06) ng/mL C-Reactive Protein (0.0-0.3) mg/dL 0.85 H NT-Pro-B Natriuret Pep ( - 299) pg/mL Total Protein (6.4-8.2) g/dL 5.2 L Albumin (3.4-5.0) g/dL 2.7 L Patient ABO/Rh Antibody Screen Crossmatch Range/Units 06/01/19 06/01/19 06/01/19 11:48 12:30 15:21 WBC (4.4-10.8) k/cumm RBC (4.50-6.00) m/cumm Hgb (13.5-17.5) g/dL Hct (40.0-50.0) % MCV (80-95) fL MCH (27.0-33.0) pg MCHC (32.0-36.0) g/dL RDW (11.8-14.1) % Plt Count (130-400) x1000/uL MPV (8.0-11.0) fL Immature Gran % Neutrophils % Lymphocytes % Monocytes % Eosinophils % Basophils % Absolute Neutrophils (1.2-6.7) k/cumm Absolute Lymphocytes (1.2-3.4) k/cumm Absolute Monocytes (0.11-0.7) k/cumm Absolute Eosinophils (0.0-0.7) k/cumm Absolute Basophils (0.0-0.2) k/cumm Differential Comment RBC Morphology Polychromasia Hypochromasia Poikilocytosis Basophilic Stippling Anisocytosis Macrocytosis ESR (1-20) mm/hr PT (9.3-11.0) sec INR (0.9-1.1) Sodium (136-145) mmol/L Potassium (3.5-5.1) mmol/L Chloride (98-107) mmol/L Carbon Dioxide (21.0-32.0) mmol/L Anion Gap (3-11) mmol/L BUN (7-18) mg/dL Creatinine (0.70-1.30) mg/dL Estimated GFR/1.73 m2 (mL/min/1.73m2) Glucose (70-100) mg/dL Calcium (8.5-10.1) mg/dL Total Bilirubin (0.2-1.0) mg/dL AST (15-37) U/L ALT (16-63) U/L Alkaline Phosphatase (46-116) U/L Troponin I (0.00-0.06) ng/mL 0.11 H* Cancelled C-Reactive Protein (0.0-0.3) mg/dL NT-Pro-B Natriuret Pep ( - 299) pg/mL > 66819 H Total Protein (6.4-8.2) g/dL Albumin (3.4-5.0) g/dL Patient ABO/Rh O Positive Antibody Screen Negative Crossmatch See Detail ECG Data Attestation: I personally reviewed and interpreted this ECG (s) as follows: Interpretation: EKG shows sinus rhythm at 64, normal axis, poor R wave progression, inverted T waves lateral leads present on prior, no STEMI, nondiagnostic EKG HPI General Mode of arrival: EMS . Date/Time Provider Initiated Documentation: 06/01/19 11:17 . Limitations to Documentation: no limitations . Information obtained by: patient, RN notes reviewed and old records reviewed . HPI Narrative: Kofi Moraes is a 68 y/o man with history of insulin-dependent diabetes, A. fib on Coumadin, chronic kidney disease on dialysis, hypertension, high cholesterol presenting to the emergency department with back pain. Patient reports that he has had left-sided low back pain for several months. Patient r eports that walking makes pain worse. He reports that he slept on the floor last night because sleeping on the floor sometimes improves his pain. His inbound ingredient logistics specialist who lives with him could not get him off the ground this morning secondary to pain, and EMS was called. Per EMS patient was able to stand and walk without issue. Patient reports that his pain has not changed at all over the past 2 months, but he came in today because he just cannot take it anymore. No change in quality, location, or severity over the past 2 months. Patient denies any other pain, denies shortness of breath, cough, fever, numbness, weakness, dysuria, urinary hesitancy or retention, diarrhea, constipation, vomiting, rash. Related Data Home Medications Medication Instructions Recorded Confirmed pen needle, diabetic 31 gauge x #100 each 02/03/19 06/01/1910/11 nitroglycerin 0.4 mg sublingual 0.4 mg SL Q5-15M PRN 02/09/19 06/01/19 tablet aspirin 81 mg tablet,delayed 81 mg PO DAILY #30 tab 03/06/19 06/01/19 release insulin glargine 100 unit/mL (3 15 unit SC QHS #15 ml 03/06/19 06/01/19 mL) subcutaneous pen magnesium oxide 400 mg (241.3 mg 400 mg PO DAILY #30 tab 03/06/19 06/01/19 magnesium) tablet melatonin 3 mg tablet 6 mg PO HS PRN #60 tab 03/06/19 06/01/19 tramadol 50 mg tablet 50 mg PO Q12H PRN #56 tab 03/06/19 06/01/19 blood sugar diagnostic #100 each 03/19/19 06/01/19 blood-glucose meter #1 each 03/19/19 06/01/19 lancets #100 each 03/19/19 06/01/19 cabergoline 0.5 mg tablet 0.5 mg PO .COMPLEX #8 tab 04/13/19 06/01/19 plister nette #1 ea 04/13/19 06/01/19 amlodipine [Norvasc] 10 mg PO DAILY 05/23/19 06/01/19 calcium acetate 1,334 mg PO TID 05/23/19 06/01/19 carvedilol 3.125 mg PO BID 05/23/19 06/01/19 diltiazem HCl [Cardizem] 180 mg PO DAILY 05/23/19 06/01/19 furosemide 40 - 60 mg PO DIRECTED 05/23/19 06/01/19 insulin lispro [Humalog KwikPen 4 unit SC QAC 05/23/19 06/01/19 Insulin] quinapril 20 mg PO DAILY 05/23/19 06/01/19 rosuvastatin [Crestor] 10 mg PO DAILY 05/23/19 06/01/19 sevelamer carbonate 1,600 mg PO TID 05/23/19 06/01/19 trazodone 100 mg PO QHS PRN 05/23/19 06/01/19 warfarin 5 mg PO DAILY 05/23/19 06/01/19 Previous Rx's Medication Instructions Recorded pen needle, diabetic 31 gauge x #100 each 02/03/1910/11 aspirin 81 mg tablet,delayed 81 mg PO DAILY #30 tab 03/06/19 release insulin glargine 100 unit/mL (3 15 unit SC QHS #15 ml 03/06/19 mL) subcutaneous pen magnesium oxide 400 mg (241.3 mg 400 mg PO DAILY #30 tab 03/06/19 magnesium) tablet melatonin 3 mg tablet 6 mg PO HS PRN #60 tab 03/06/19 tramadol 50 mg tablet 50 mg PO Q12H PRN #56 tab 03/06/19 blood sugar diagnostic #100 each 03/19/19 blood-glucose meter #1 each 03/19/19 lancets #100 each 03/19/19 cabergoline 0.5 mg tablet 0.5 mg PO .COMPLEX #8 tab 04/13/19 Allergies Allergy/AdvReac Type Severity Reaction Status Date / Time atorvastatin AdvReac Intermediate GI upset, Verified 05/23/19 11:35 dizziness oxycodone AdvReac Intermediate nightmares Verified 05/23/19 11:35 General Stated Complaint: Nk/Back Pain DAIANA: 3 Review of Systems Narrative: Constitutional: denies fevers Eyes: denies eye pain ENT: denies facial pain, dental pain, sore throat Cardiovascular: denies chest pain, edema Respiratory: denies SOB, cough GI: denies abdominal pain, vomiting, diarrhea : denies flank pain MSK: denies neck pain, arthralgias, myalgias, reports chronic unchanged back pain Skin: denies rash Neuro: denies headaches, numbness, weakness PFSH Medical History Atrial fibrillation (Inactive) Echo 02/06/19 at [facility] Atrial fibrillation and flutter (Acute) Atrial flutter (Inactive) Depression (Inactive) ESRD (end stage renal disease) (Inactive) Essential hypertension (Inactive) Hypercholesterolemia (Inactive) Secondary hyperparathyroidism (Inactive) Sleep apnea (Inactive) Type II diabetes mellitus (Chronic) Social History Smoking/Tobacco Use Status: Never Alcohol Intake: never Drug use: Never Substance use type: does not use Household members: spouse Housing: house Number of Children: 0 What type of physical activity do you participate in: none Seatbelt use: always 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 Do you feel safe at home: Yes Do you feel safe in your relationship?: Yes Exam Narrative Exam Narrative: Constitutional: somewhat chronically ill but acutely [id number], pleasant, conversing normally, no distress HENT: head atraumatic/normocephalic/normal inspection, mucous membranes moist Eyes: conjunctiva normal, sclera normal, pupils 3mm b/l Neck: no stridor, normal ROM, trachea midline Chest: normal inspection Resp: normal work of breathing, LCTAB Cardio: normal rate, normal rhythm, no murmur appreciated GI: abdomen soft, non-tender, non-distended Back: normal inspection, no rash, tenderness to palpation over right SI joint that reproduces pain, no point tenderness to palpation, no crepitus, no deformity Skin: warm, dry, normal color, no rash Neuro: alert, not altered, grossly non-focal, normal tone Ext: no edema, no posterior calf tenderness, left upper extremity with dialysis fistula, positive palpable thrill Psych: normal mood, normal affect, normal behavior Course Vital Signs Vital signs: Vital Signs Temperature 36.7 C 06/01/19 11:08 Pulse 65 06/01/19 11:08 Respiratory Rate 23 06/01/19 11:08 Blood Pressure 127/68 06/01/19 11:08 Pulse Oximetry 100 06/01/19 11:08 Temperature 36.7 C 06/01/19 11:08 Temperature Source Temporal Artery Scan 06/01/19 11:08 Pulse 65 06/01/19 11:08 Respiratory Rate 23 11/04/19 11:08 Respiratory Effort 06/01/19 11:12 Blood Pressure 127/68 06/01/19 11:08 Blood Pressure Position Sitting 06/01/19 11:08 Pulse Oximetry 100 06/01/19 11:08 Oxygen Delivery Method Room Air 06/01/19 11:08 Oxygen Flow Rate 0 06/01/19 11:08 Pain Level 8 06/01/19 11:12 Critical Care Time Critical Care Time Attestation: I have spent 45 minutes of critical care time with this critically ill patient including frequently reassessments and discussions with consultants.
[2019-06-01 11:59] LABS: Abs Immature Grans 0.02 k/cumm (0.0-0.09); Absolute Basophil Count 0.02 k/cumm (0.0-0.2); Absolute Eosinophil Count 0.08 k/cumm (0.0-0.7); Absolute Lymphocyte Count 0.58 k/cumm (1.2-3.4); Absolute Monocyte Count 0.68 k/cumm (0.11-0.7); Absolute Neutrophil Count 8.03 k/cumm (1.2-6.7); Basophils % 0.2; Eosinophils % 0.9; Immature Grans % 0.2; Lymphocytes % 6.2; Mean Corp. HGB Concentration 30.4 g/dL (32.0-36.0); Mean Corpuscular Hemoglobin 32.9 pg (27.0-33.0); Mean Corpuscular Volume 108.1 fL (80-95); Mean Platelet Volume 10.1 fL (8.0-11.0); Monocytes % 7.2; Platelet Count 184 x1000/uL (130-400); RBC 1.49 m/cumm (4.50-6.00); RBC Distribution Width 22.1 % (11.8-14.1); White Blood Cell Count 9.41 k/cumm (4.4-10.8)
[2019-06-01] MEDS: Normal Saline Flush 10 ML SYR IVP (12:01)
[2019-06-01 12:08] LABS: ALT 29 U/L (16-63); AST 21 U/L (15-37); Albumin 2.7 g/dL (3.4-5.0); Alkaline Phosphatase 45 U/L (46-116); Anion Gap 12.4 mmol/L (3-11); BUN 55 mg/dL (7-18); Bilirubin, Total 0.4 mg/dL (0.2-1.0); C-Reactive Protein 0.85 mg/dL (0.0-0.3); CO2 26.6 mmol/L (21.0-32.0); Calcium 7.7 mg/dL (8.5-10.1); Chloride 100 mmol/L (98-107); Estimated GFR 9.38 (mL/min/1.73m2); Glucose 151 mg/dL (70-100); Potassium 4.3 mmol/L (3.5-5.1); Sodium 139 mmol/L (136-145); Total Protein 5.2 g/dL (6.4-8.2)
[2019-06-01 12:15] LABS: HGB 4.9 g/dL (13.5-17.5)
[2019-06-01 12:16] LABS: HCT 16.1 % (40.0-50.0); INR 1.2 (0.9-1.1); Prothrombin Time 11.8 sec (9.3-11.0)
[2019-06-01 12:26] LABS: CREATININE 6.01 mg/dL (0.70-1.30)
[2019-06-01 12:33] LABS: Diff Comment Agrees w/ Instrument; Hypochromasia 3+; Neutrophils % 85.3; Polychromasia Present
[2019-06-01 12:34] LABS: Anisocytosis 3+; Macrocytosis 2+
[2019-06-01 12:43] LABS: Basophilic Stippling Present; Poikilocytes 2+
[2019-06-01] MEDS: Pantoprazole 40 MG VIAL 80 MG IVP (13:00)
[2019-06-01 13:10] LABS: ESR 20 mm/hr (1-20)
[2019-06-01 13:13] LABS: NT-proBNP > 35000 pg/mL; Troponin I 0.11 ng/mL (0.00-0.06)
--- NOTE | 2019-06-01 13:35 | NUR.NOTE ---
Nursing Note: Pt and , Carmen, verify with this scribe as well as MD that he does not want CPR or intubation if the need arises. Pt wishes to speak to someone about palliative care. Does state he would like to continue with receiving a blood transfusion and to continue on dialysis. Pt tearful at times and requires TLC. Will continue to monitor and notify care management on a palliative care referral.
--- NOTE | 2019-06-01 14:25 | NUR.NOTE ---
Nursing Note: Patient report given to Breanna Melendez Medic on patient. Pt has blood currently running through R EJ placed by Dr. Tobias and was running as patient left with ambulance at 150/hr. Pt also has Protonix drig running in R hand as ordered. No questions from medic. Pt and his agreeable to transfer.
== END 2019-06-01 14:24 ==
LOC: ER 12:08
PROVIDERS: Emergency Provider Student in an Organized Health Care Education/Training Program; PCP Family Medicine
DX: K92.1 Melena (principal); M54.5 Low back pain; D64.9 Anemia, unspecified; G89.29 Other chronic pain; I50.9 Heart failure, unspecified; N18.6 End stage renal disease; N13.0 Hydronephrosis with ureteropelvic junction obstruction; E11.22 Type 2 diabetes mellitus with diabetic chronic kidney disease; Z79.4 Long term (current) use of insulin; Z91.14 Patient's other noncompliance with medication regimen; Z99.2 Dependence on renal dialysis
CPT/HCPCS: 36415; 36430; 80053; 85652; 86850; 86900; 86901; 86920; 93005; 96365; 96375; 96376; 83880; 84484; 85025; 85610; 86140; 93010; 99281; P9016

== ENCOUNTER 2019-12-11 17:02 | Outpatient (REF) | payer MEDICARE, OTHER, SELFPAY ==
[2019-12-13 07:12] LABS: COVID-19 RT-PCR Result NEGATIVE (Negative)
== END 2019-12-11 17:22 ==
LOC: LBN 17:02
PROVIDERS: PCP Family Medicine; Visit Provider Nurse Practitioner Adult Health
DX: Z20.828 Contact with and (suspected) exposure to other viral communicable diseases (principal)
CPT/HCPCS: U0003

== ENCOUNTER 2019-12-16 20:10 | Outpatient (REF) | payer MEDICARE, OTHER, SELFPAY ==
[2019-12-17 22:02] LABS: COVID-19 RT-PCR UVMMC Result Negative (Negative)
== END 2019-12-16 20:30 ==
LOC: LBN 20:10
PROVIDERS: PCP Family Medicine; Visit Provider Nurse Practitioner Adult Health
DX: Z20.828 Contact with and (suspected) exposure to other viral communicable diseases (principal)
CPT/HCPCS: U0003

== ENCOUNTER 2019-12-23 16:31 | Outpatient (REF) | payer MEDICARE, OTHER, SELFPAY ==
[2019-12-24 00:36] LABS: COVID-19 RT-PCR UVMMC Result Negative (Negative)
== END 2019-12-23 16:51 ==
LOC: LBN 16:31
PROVIDERS: PCP Family Medicine; Visit Provider Nurse Practitioner Adult Health
DX: Z03.818 Encounter for observation for suspected exposure to other biological agents ruled out (principal)
CPT/HCPCS: U0003

== ENCOUNTER 2019-12-30 17:56 | Outpatient (REF) | payer MEDICARE, OTHER, SELFPAY ==
[2019-12-31 18:28] LABS: COVID-19 RT-PCR Result Not Detected ((See Note))
== END 2019-12-30 18:16 ==
LOC: LBN 17:56
PROVIDERS: PCP Family Medicine; Visit Provider Nurse Practitioner Adult Health
DX: Z11.59 Encounter for screening for other viral diseases (principal)
CPT/HCPCS: U0003

== ENCOUNTER 2020-01-06 16:48 | Outpatient (REF) | payer MEDICARE, OTHER, SELFPAY ==
[2020-01-07 10:50] LABS: COVID-19 RT-PCR UVMMC Result Negative (Negative)
== END 2020-01-06 17:08 ==
LOC: LBN 16:48
PROVIDERS: PCP Family Medicine; Visit Provider Nurse Practitioner Adult Health
DX: Z03.818 Encounter for observation for suspected exposure to other biological agents ruled out (principal)
CPT/HCPCS: U0003

== ENCOUNTER 2020-01-13 14:39 | Outpatient (REF) | payer MEDICARE, OTHER, SELFPAY ==
[2020-01-14 17:46] LABS: COVID-19 RT-PCR Result Not Detected ((See Note))
== END 2020-01-13 14:59 ==
LOC: LBN 14:39
PROVIDERS: PCP Family Medicine; Visit Provider Nurse Practitioner Adult Health
DX: Z03.818 Encounter for observation for suspected exposure to other biological agents ruled out (principal)
CPT/HCPCS: U0003

== ENCOUNTER 2020-01-20 21:08 | Outpatient (REF) | payer MEDICARE, OTHER, SELFPAY ==
[2020-01-22 15:21] LABS: COVID-19 RT-PCR Result Not Detected ((See Note))
== END 2020-01-20 21:28 ==
LOC: LBN 21:08
PROVIDERS: PCP Family Medicine; Visit Provider Nurse Practitioner Adult Health
DX: Z03.818 Encounter for observation for suspected exposure to other biological agents ruled out (principal)
CPT/HCPCS: U0003

== ENCOUNTER 2020-01-27 13:25 | Outpatient (REF) | payer MEDICARE, OTHER, SELFPAY ==
[2020-01-28 17:58] LABS: COVID-19 RT-PCR Result Not Detected ((See Note))
== END 2020-01-27 13:45 ==
LOC: LBN 13:25
PROVIDERS: PCP Family Medicine; Visit Provider Nurse Practitioner Adult Health
DX: Z03.818 Encounter for observation for suspected exposure to other biological agents ruled out (principal)
CPT/HCPCS: U0003

== ENCOUNTER 2020-02-03 16:50 | Outpatient (REF) | payer MEDICARE, OTHER, SELFPAY ==
[2020-02-04 17:30] LABS: COVID-19 RT-PCR Result Not Detected ((See Note))
== END 2020-02-03 17:10 ==
LOC: LBN 16:50
PROVIDERS: PCP Family Medicine; Visit Provider Nurse Practitioner Adult Health
DX: Z03.818 Encounter for observation for suspected exposure to other biological agents ruled out (principal)
CPT/HCPCS: U0003

== ENCOUNTER 2020-02-05 16:44 | Outpatient (REF) | payer MEDICARE, OTHER, SELFPAY ==
[2020-02-05 18:08] LABS: Abs Immature Grans 0.02 k/cumm (0.0-0.09); Absolute Basophil Count 0.02 k/cumm (0.0-0.2); Absolute Eosinophil Count 0.32 k/cumm (0.0-0.7); Absolute Lymphocyte Count 0.77 k/cumm (1.2-3.4); Absolute Monocyte Count 0.65 k/cumm (0.11-0.7); Absolute Neutrophil Count 4.45 k/cumm (1.2-6.7); Basophils % 0.3; Eosinophils % 5.1; HCT 32.4 % (40.0-50.0); HGB 10.3 g/dL (13.5-17.5); Immature Grans % 0.3 %; Lymphocytes % 12.4; Mean Corp. HGB Concentration 31.8 g/dL (32.0-36.0); Mean Corpuscular Hemoglobin 30.8 pg (27.0-33.0); Monocytes % 10.4; Neutrophils % 71.5; Platelet Count 125 x1000/uL (130-400); RBC 3.34 m/cumm (4.50-6.00); RBC Distribution Width 14.8 % (11.8-14.1); White Blood Cell Count 6.23 k/cumm (4.4-10.8)
[2020-02-05 18:38] LABS: BUN 44 mg/dL (7-18); Calcium 8.8 mg/dL (8.5-10.1); Chloride 100 mmol/L (98-107); Estimated GFR 10.06 (mL/min/1.73m2); Glucose 141 mg/dL (74-106); Sodium 138 mmol/L (136-145)
[2020-02-05 22:27] LABS: CREATININE 5.64 mg/dL (0.70-1.30)
== END 2020-02-05 17:04 ==
LOC: LBN 16:44
PROVIDERS: PCP Family Medicine; Visit Provider Nurse Practitioner Adult Health
DX: I27.22 Pulmonary hypertension due to left heart disease (principal); E11.9 Type 2 diabetes mellitus without complications; D64.9 Anemia, unspecified; R68.89 Other general symptoms and signs
CPT/HCPCS: 80048; 85025

== ENCOUNTER 2020-02-07 15:23 | Outpatient (REF) | payer MEDICARE, OTHER, SELFPAY ==
[2020-02-07 15:45] LABS: Bilirubin Negative (Negative); Blood Negative (Negative); Clarity Clear (Clear); Glucose Negative (Negative); Ketones Negative (Negative); Leukocyte Esterase Negative (Negative); Nitrite Negative (Negative); Urobilinogen 0.2 EU/dL (Up TO 0.2); pH 8.5 (5-8)
[2020-02-07 16:14] LABS: Bacteria Rare HPF (Negative); C & S Indicated? C&S Done As Ordered; Casts 3-5 Hyaline LPF (Negative); Crystals Negative HPF (Negative); Epithelial Cells Moderate HPF (Negative); Mucus Trace (Negative); Other Cells Few Transitional (Negative); RBC 0-2 HPF (0-2)
== END 2020-02-07 15:43 ==
LOC: LBN 15:23
PROVIDERS: PCP Family Medicine; Visit Provider Nurse Practitioner Adult Health
DX: N39.0 Urinary tract infection, site not specified (principal)
CPT/HCPCS: 81003; 81015; 87086

== ENCOUNTER 2020-02-10 18:02 | Outpatient (REF) | payer MEDICARE, OTHER, SELFPAY ==
[2020-02-11 19:17] LABS: COVID-19 RT-PCR Result Not Detected ((See Note))
== END 2020-02-10 18:22 ==
LOC: LBN 18:02
PROVIDERS: PCP Family Medicine; Visit Provider Nurse Practitioner Adult Health
DX: Z03.818 Encounter for observation for suspected exposure to other biological agents ruled out (principal)
CPT/HCPCS: U0003

== ENCOUNTER 2020-02-18 12:08 | Outpatient (REF) | payer MEDICARE, OTHER, SELFPAY ==
[2020-02-19 20:12] LABS: COVID-19 RT-PCR Result Not detected ((See Note))
== END 2020-02-18 12:28 ==
LOC: LBN 12:08
PROVIDERS: PCP Family Medicine; Visit Provider Nurse Practitioner Adult Health
DX: Z03.818 Encounter for observation for suspected exposure to other biological agents ruled out (principal)
CPT/HCPCS: U0003

== ENCOUNTER 2020-02-24 11:08 | Outpatient (REF) | payer MEDICARE, OTHER, SELFPAY ==
[2020-02-25 17:37] LABS: COVID-19 RT-PCR Result Not Detected ((See Note))
== END 2020-02-24 11:28 ==
LOC: LBN 11:08
PROVIDERS: PCP Family Medicine; Visit Provider Nurse Practitioner Adult Health
DX: Z03.818 Encounter for observation for suspected exposure to other biological agents ruled out (principal)
CPT/HCPCS: U0003

== ENCOUNTER 2020-03-02 14:05 | Outpatient (REF) | payer MEDICARE, OTHER, SELFPAY ==
[2020-03-04 14:40] LABS: COVID-19 RT-PCR Result NEGATIVE (Negative)
== END 2020-03-02 14:25 ==
LOC: LBN 14:05
PROVIDERS: PCP Family Medicine; Visit Provider Nurse Practitioner Adult Health
DX: Z11.59 Encounter for screening for other viral diseases (principal)
CPT/HCPCS: U0003

== ENCOUNTER 2020-03-16 14:54 | Outpatient (REF) | payer MEDICARE, OTHER, SELFPAY ==
[2020-03-17 16:50] LABS: COVID-19 RT-PCR Result Not Detected ((See Note))
== END 2020-03-16 15:14 ==
LOC: LBN 14:54
PROVIDERS: PCP Family Medicine; Visit Provider Nurse Practitioner Adult Health
DX: Z11.59 Encounter for screening for other viral diseases (principal)
CPT/HCPCS: U0003

== ENCOUNTER 2020-03-23 12:14 | Outpatient (REF) | payer MEDICARE, OTHER, SELFPAY ==
[2020-03-24 17:09] LABS: COVID-19 RT-PCR Result Not Detected ((See Note))
== END 2020-03-23 12:34 ==
LOC: LBN 12:14
PROVIDERS: PCP Family Medicine; Visit Provider Nurse Practitioner Adult Health
DX: Z11.59 Encounter for screening for other viral diseases (principal)
CPT/HCPCS: U0003

== ENCOUNTER 2020-03-30 16:42 | Outpatient (REF) | payer MEDICARE, OTHER, SELFPAY ==
[2020-03-31 16:18] LABS: COVID-19 RT-PCR Result Not Detected ((See Note))
== END 2020-03-30 17:02 ==
LOC: LBN 16:42
PROVIDERS: PCP Family Medicine; Visit Provider Nurse Practitioner Adult Health
DX: Z11.59 Encounter for screening for other viral diseases (principal)
CPT/HCPCS: U0003

== ENCOUNTER 2020-04-13 14:34 | Outpatient (REF) | payer MEDICARE, OTHER, SELFPAY ==
[2020-04-15 08:52] LABS: COVID-19 RT-PCR Result NEGATIVE (Negative)
== END 2020-04-13 14:54 ==
LOC: LBN 14:34
PROVIDERS: PCP Family Medicine; Visit Provider Nurse Practitioner Adult Health
DX: Z11.59 Encounter for screening for other viral diseases (principal)
CPT/HCPCS: U0003

== ENCOUNTER 2020-05-18 18:08 | Outpatient (REF) | payer MEDICARE, MEDICAID, SELFPAY ==
[2020-05-19 17:17] LABS: COVID-19 RT-PCR Result Not Detected ((See Note))
== END 2020-05-18 18:28 ==
LOC: LBN 18:08
PROVIDERS: PCP Family Medicine; Referring Provider Nurse Practitioner Adult Health; Visit Provider Nurse Practitioner Adult Health
DX: R50.9 Fever, unspecified (principal)
CPT/HCPCS: U0003

== ENCOUNTER 2020-05-23 14:13 | Outpatient (REF) | payer SELFPAY ==
[2020-05-23 14:38] LABS: Abs Immature Grans 0.03 10^3/uL (0.0-0.06); Absolute Basophil Count 0.03 10^3/uL (0.0-0.2); Absolute Eosinophil Count 0.18 10^3/uL (0.0-0.7); Absolute Lymphocyte Count 0.38 10^3/uL (1.2-3.4); Absolute Monocyte Count 0.55 10^3/uL (0.1-0.8); Absolute Neutrophil Count 4.78 10^3/uL (1.2-6.7); Basophils % 0.5; HCT 32.8 % (40.0-50.0); HGB 10.7 g/dL (13.5-17.5); Immature Grans % 0.5; Lymphocytes % 6.4; MCH 31.1 pg (27.0-33.0); MCHC 32.6 % (32.0-36.0); MCV 95.3 fL (80-95); MPV 11.4 fL (8.0-11.0); Monocytes % 9.2; Neutrophils % 80.4; Nucleated RBC 0 %; Platelet Count 176 10^3/uL (130-400); RBC 3.44 10^6/uL (4.36-5.78); RDW 16.8 % (11.8-14.1); RDW-SD 58.5 fL; WBC 5.95 10^3/uL (4.4-10.8)
[2020-05-23 14:47] LABS: Anion Gap 12.3 mmol/L (3-11); CO2 20.7 mmol/L (21.0-32.0); Calcium 8.5 mg/dL (8.5-10.1); Chloride 101 mmol/L (98-107); Estimated GFR 3.29 (mL/min/1.73m2); Glucose 159 mg/dL (74-106); Sodium 134 mmol/L (136-145)
[2020-05-23 15:01] LABS: BUN 112 mg/dL (7-18); CREATININE 14.86 mg/dL (0.70-1.30); Potassium 7.7 mmol/L (3.5-5.1)
== END 2020-05-23 14:33 ==
LOC: LBN 14:13
PROVIDERS: PCP Family Medicine; Visit Provider Family Medicine
DX: I10 Essential (primary) hypertension (principal); R78.89 Finding of other specified substances, not normally found in blood
CPT/HCPCS: 80048; 85025

== ENCOUNTER 2020-05-24 17:00 | Emergency (ER) | payer MEDICARE, MEDICAID, SELFPAY ==
[2020-05-24 17:01] VITALS: BP 154/93; PULSE 87; RESP 20; TEMP 37.1; O2SAT 99
--- NOTE | 2020-05-24 17:15 | DI.RAD_ITS ---
EXAM: XR CHEST 2V PA LATERAL CLINICAL HISTORY: fall/weakness TECHNIQUE: COMPARISON: CR,XR XR CHEST 2V PA LATERAL from 05/23/2019 FINDINGS: Heart is mildly enlarged. Lungs appear grossly clear and unchanged in appearance comparison previous examination April 2019. There is tortuosity of the thoracic aorta which may be ectatic. No watkins e from prior study. No pleuralEffusion seen. IMPRESSION: Cardiomegaly, no evidence of acute process. RADIATION DOSE DELIVERED: Total DLP
--- NOTE | 2020-05-24 17:15 | RT.EKG_ITS ---
APPROVED REPORT Exam: Resting ECG Patient Location: E HR:83 bpm ECG Measurements Heart Rate 83 AXIS ND 187 P 35 QRSd 98 QRS -17 QT 416 T 165 QTc 489 Conclusion Sinus rhythm...normal P axis, V-rate 60- 99 Probable left atrial enlargement...P >50mS, <-0.10mV V1 Abnormal T, consider ischemia, lateral leads...T <-0.20mV, I aVL V5 V6. TWI and 1mm ST depression in lateral leads I, aVL, V5-6, seen in previous EKG 05/2019. No acute change from previous EKG. No STEMI. I have reviewed and interpreted ECG and agree with software generated interpretation.
--- NOTE | 2020-05-24 17:15 | DI.RAD_ITS ---
EXAM: XR SHOULDER RT COMPLETE 2+V CLINICAL HISTORY: fall TECHNIQUE: COMPARISON: No exams were available for comparison FINDINGS: Four views were obtained. There are severe degenerative changes of the glenohumeral joint with marke d loss of the cartilaginous joint space and prominent marginal osteophytes and subchondral sclerosis of the adjacent bones. There are mild hypertrophic changes of the acromioclavicular joint noted as well. There is no eviden ce of acute fracture or dislocation. IMPRESSION: Severe DJD of the glenohumeral joint, no evidence of acute injury. RADIATION DOSE DELIVERED: Total DLP
--- NOTE | 2020-05-24 17:15 | DI.CT_ITS ---
EXAM: CT HEAD WO CLINICAL HISTORY: fall yesterday, weakness. TECHNIQUE: Imaging Protocol: Axial computed tomography images with coronal and sagittal reformatted images were created and reviewed COMPARISON: CT CT HEAD WO from 05/23/2019 FINDINGS: There is moderate generalized cerebral atrophy. There are mild patchy areas of decreased attenuation in periventricular white matter consistent with microvascular ischemic change. No evidence of acute intracranial hemorrhage, mass effect, or midline shift. The orbital structures are unremarkable. The temporal bone structures appear intact. Calvarium: Normal. Visualized Paranasal sinuses/Mastoids: Clear. IMPRESSION: No evidence of acute intracranial process.. RADIATION DOSE DELIVERED: 772.37mGy.cm Total DLP 772.37mGy.cm Total DLP DATA REPOSITORY: All CT scans at this facility are submitted to the National Radiology Data Registry (NRDR) Dose Index Registry (DIR) with the [employer] (A[employer]). RADIATION OPTIMIZATION: All CT scans at this facility use at least one of these dose optimization te chniques: automated exposure control; mA and/or kV adjustment per patient size (includes targeted exa ms where dose is matched to clinical indication); or iterative reconstruction.
--- NOTE | 2020-05-24 17:46 | ED.GENADUL_ITS ---
Discharge Plan Disposition Patient Disposition: OTHER Condition: Stable Discharge Details Clinical Impression: ESRD on dialysis Primary Care Provider: Kwaku Rios ED Provider: Benny Do Home Meds and New Rx's Prescriptions: Continued aspirin 81 mg tablet,delayed release (DR/EC) 81 mg PO DAILY Qty: 30 RF: 11 magnesium oxide 400 mg (241.3 mg magnesium) tablet 400 mg PO DAILY Qty: 30 RF: 11 melatonin 3 mg tablet 6 mg PO HS PRN (Reason: sleep) Qty: 60 RF: 11 tramadol 50 mg tablet 50 mg PO Q12H PRN (Reason: pain) Qty: 56 RF: 1 (DME) pen needle, diabetic [Lite Touch Insulin Pen [place]] 31 gauge x 3/16 needle See Dose Instructions .ROUTE .MEDSUPPLY Qty: 100 RF: 3 nitroglycerin 0.4 mg tablet, sublingual 0.4 mg SL Q5-15M PRNRF: 0 (DME) blood sugar diagnostic Strip See Rx Instructions .ROUTE .MEDSUPPLY Qty: 100 RF: 12 (DME) blood-glucose meter Kit See Rx Instructions .ROUTE .MEDSUPPLY Qty: 1 RF: 0 (DME) lancets [Lancets,Ultra Thin] Misc See Rx Instructions .ROUTE .MEDSUPPLY Qty: 100 RF: 12 (DME) plister nette Qty: 1 RF: 0 cabergoline 0.5 mg tablet 0.5 mg PO .COMPLEX Qty: 8 RF: 11 calcium acetate(phosphat bind) 667 mg Capsule 1,334 mg PO TID RF: 0 diltiazem HCl [Cardizem] 60 mg Tablet 180 mg PO DAILY RF: 0 carvedilol 3.125 mg tablet 9.375 mg PO BID RF: 0 warfarin 5 mg Tablet 5 mg PO DAILY RF: 0 rosuvastatin [Crestor] 10 mg tablet 5 mg PO DAILY RF: 0 insulin lispro [Humalog KwikPen Insulin] 100 unit/mL insulin pen 4 unit SC QAC RF: 0 furosemide 80 mg tablet 40 - 60 mg PO DIRECTED RF: 0 amlodipine [Norvasc] 10 mg Tablet 10 mg PO DAILY RF: 0 quinapril 20 mg tablet 20 mg PO DAILY RF: 0 sevelamer carbonate [Renvela] 800 mg Tablet 800 mg PO TID RF: 0 trazodone 50 mg tablet 25 mg PO QHS PRN (Reason: sleep) RF: 0 sertraline [Zoloft] 100 mg tablet 100 mg PO DAILY RF: 0 quinapril 10 mg Tablet 10 mg PO .NOON RF: 0 pantoprazole [Protonix] 40 mg tablet,delayed release (DR/EC) 40 mg PO DAILY RF: 0 [place] Caps 1 mg capsule 1 cap PO DAILY RF: 0 [place] Caps 1 mg capsule 1 cap PO DAILY RF: 0 Lantus Solostar U-100 Insulin 100 unit/mL (3 mL) insulin pen 10 unit SC QHS RF: 0 acetaminophen 650 mg Tablet 650 mg PO Q4H PRNRF: 0 Discharge Instructions Instructions: End Stage Kidney Disease (ED) Additional Instructions: At this time no obvious emergent medical process has been identified and you are requesting discharge. I discussed your case and work-up here in the ER with Dr. De La Vega and he feels as though you can be safely transferred back to to the rehab facility and they will evaluate you tomorrow and discuss options. Please watch for new or worsening symptoms and return to the ER for any concerns Discharge Data Discharge Date/Time-TO BE ENTERED AT DEPARTURE: 05/24/20 20:10 Medical Decision Making 69-year-old gentleman presents from the rehab facility across the street for evaluation. He has a significant and complicated past medical history, and has declined his previous 3 appointments for dialysis, but did have dialysis completed today. He admits to falling yesterday, reports right shoulder discomfort. Denies any other injury. He denies any focal weakness or generali zed weakness. He was noted to potentially be weak at the rehab facility however clinically he has no generalized or focal weakness here in the ER whatsoever. Patient initially does not want a medical screening examination or any work-up but is agreeable after discussion. Given the overall vagueness of his presentation and his complicated past medical history will obtain blood work, troponin, EKG, head CT, chest x-ray, right shoulder x-ray. Work-up here in the ER reveals a white blood cell count of 7.15 hemoglobin 10.6 hematocrit 33.0 platelet count 179. INR 1.2. Sodium 138 potassium 4.1 BUN 39, creatinine 6.88, glucose 136, magnesium 2.0, troponin less than 0.05. Urinalysis was not provided, unable to provide while here in the ER. Patient reports that he only produces urine very sporadically. The head CT was read by radiology as no acute intracranial abnormality. Chest x-ray shows cardiomegaly, aortic ectasia, aortic aneurysm not excludable. Patient denies any chest pain whatsoever. X-ray of the right shoulder reveals arthritic changes, no acute fracture. Patient observed in the ER, ambulated steadily to the restroom, ate a sandwich while awaiting his work-up. I was able to speak with Dr. De La Vega regarding his presentation and work-up. Based upon his laboratory values, no acute intracranial normality in the head CT, he feels as though the patient can safely return to his facility this evening and he will evaluate the patient tomorrow. His BUN today is 39, it was 112 yesterday. He is pleased with these numbers and patient clearly had his dialysis today. Does not feel as though any further work-up in the ER is indicated. It appears as though the patient is at baseline and he plans to discuss whether or not the patient would like to continue dialysis moving forward. We will arrange transportation back to the facility. Patient is comfortable this plan and has no additional questions or concerns. Medical Records Medical records reviewed: Yes I reviewed the patient's medical records. Lab Data Lab results reviewed: Yes I reviewed the patient's lab results. Labs: Laboratory Tests Range/Units 05/24/20 05/24/20 05/24/20 17:50 17:50 17:50 WBC (4.4-10.8) 10^3/uL 7.15 RBC (4.36-5.78) 10^6/uL 3.46 L Hgb (13.5-17.5) g/dL 10.6 L Hct (40.0-50.0) % 33.0 L MCV (80-95) fL 95.4 H MCH (27.0-33.0) pg 30.6 MCHC (32.0-36.0) % 32.1 RDW (11.8-14.1) % 16.6 H Plt Count (130-400) 10^3/uL 179 MPV (8.0-11.0) fL 10.7 Immature Gran % 0.4 Neutrophils % 83.0 Lymphocytes % 6.0 Monocytes % 8.3 Eosinophils % 2.0 Basophils % 0.3 Nucleated RBC % % 0 Absolute Neutrophils (1.2-6.7) 10^3/uL 5.94 Absolute Lymphocytes (1.2-3.4) 10^3/uL 0.43 L Absolute Monocytes (0.1-0.8) 10^3/uL 0.59 Absolute Eosinophils (0.0-0.7) 10^3/uL 0.14 Absolute Basophils (0.0-0.2) 10^3/uL 0.02 PT (9.3-11.0) sec 12.5 H INR (0.9-1.1) 1.2 H APTT (21.0-31.4) sec 35.0 H Sodium (136-145) mmol/L 138 Potassium (3.5-5.1) mmol/L 4.1 D Chloride (98-107) mmol/L 99 Carbon Dioxide (21.0-32.0) mmol/L 30.9 Anion Gap (3-11) mmol/L 8.1 BUN (7-18) mg/dL 39 H D Creatinine (0.70-1.30) mg/dL 6.88 H* D Estimated GFR/1.73 m2 (mL/min/1.73m2) 8.00 Glucose (74-106) mg/dL 136 H Calcium (8.5-10.1) mg/dL 8.6 Magnesium (1.8-2.4) mg/dL 2.0 Total Bilirubin (0.2-1.0) mg/dL 0.5 AST (15-37) U/L 10 L ALT (16-63) U/L 14 L Alkaline Phosphatase (46-116) U/L 93 Troponin I (<0.06) ng/mL 0.05 Total Protein (6.4-8.2) g/dL 7.6 Albumin (3.4-5.0) g/dL 3.3 L ECG Data Attestation: I personally reviewed and interpreted this ECG (s) as follows: Interpretation: Please see official report by Dr. El. Sinus rhythm, ventricular rate of 83. Nonspecific T wave abnormalities. No STEMI HPI General Mode of arrival: EMS . Date/Time Provider Initiated Documentation: 05/24/20 17:06 . Limitations to Documentation: no limitations . Information obtained by: patient and EMS . HPI Narrative: This is a 69-year-old gentleman with past medical history of end-stage renal disease, on dialysis, A. fib, type 2 diabetes, depression, hypertension, presenting from local rehab facility for evaluation. The initial presentation is somewhat vague. Patient apparently had an unwitnessed fall last night, unknown whether there were any injuries. Patient has become more agitated over the past week or so. There is a question of whether or not he had generalized weakness versus right-sided weakness. Apparently he has refused his last 3 dialysis appointments although he did go today. He apparently got through the vast majority of his dialysis today and then ripped his IV out and threw it across the room. Patient presents via EMS, tells me that there is nothing wrong, and that he does not need to be here. He initially does not want any evaluation performed but after some discussion he was willing to have a more thorough work-up done. He states that he does remember falling yesterday, he states that his right shoulder is sore from the fall but denies any other injury. He tells me that he is a very sick man and sometimes just does not feel like going to dialysis. I was able to speak with the physician on-call at the rehab facility, Dr. De La Vega. He was able to give me some additional information. Yesterday the patient had blood work and was found to be quite uremic. Patient has had metabolic encephalopathy in the past and was sent to the ER for further evaluation of laboratory values, potential electrolyte abnormalities, etc. Patient has voiced concerns that he does not want to continue dialysis and Dr. De La Vega wants to be sure that he can have a conversation with the patient at his mental baseline and if his laboratory values are stable today he believes that he can be safely discharged back to the facility tonight. Related Data Home Medications Medication Instructions Recorded Confirmed pen needle, diabetic 31 gauge x #100 each 02/03/19 06/01/1910/11 nitroglycerin 0.4 mg sublingual 0.4 mg SL Q5-15M PRN 02/09/19 05/24/20 tablet aspirin 81 mg tablet,delayed 81 mg PO DAILY #30 tab 03/06/19 05/24/20 release magnesium oxide 400 mg (241.3 mg 400 mg PO DAILY #30 tab 03/06/19 05/24/20 magnesium) tablet melatonin 3 mg tablet 6 mg PO HS PRN #60 tab 03/06/19 05/24/20 tramadol 50 mg tablet 50 mg PO Q12H PRN #56 tab 03/06/19 05/24/20 blood sugar diagnostic #100 each 03/19/19 06/01/19 blood-glucose meter #1 each 03/19/19 06/01/19 lancets #100 each 03/19/19 06/01/19 cabergoline 0.5 mg tablet 0.5 mg PO .COMPLEX #8 tab 04/13/19 05/24/20 plister nette #1 ea 04/13/19 06/01/19 amlodipine [Norvasc] 10 mg PO DAILY 05/23/19 05/24/20 calcium acetate(phosphat bind) 1,334 mg PO TID 05/23/19 05/24/20 carvedilol 9.375 mg PO BID 05/23/19 05/24/20 diltiazem HCl [Cardizem] 180 mg PO DAILY 05/23/19 05/24/20 furosemide 40 - 60 mg PO DIRECTED 05/23/19 05/24/20 insulin lispro [Humalog KwikPen 4 unit SC QAC 05/23/19 05/24/20 Insulin] quinapril 20 mg PO DAILY 05/23/19 05/24/20 rosuvastatin [Crestor] 5 mg PO DAILY 05/23/19 05/24/20 sevelamer carbonate [Renvela] 800 mg PO TID 05/23/19 05/24/20 trazodone 25 mg PO QHS PRN 05/23/19 05/24/20 warfarin 5 mg PO DAILY 05/23/19 05/24/20 Lantus Solostar U-100 Insulin 10 unit SC QHS 05/24/20 05/24/20 [place] Caps 1 cap PO DAILY 05/24/20 05/24/20 [place] Caps 1 cap PO DAILY 05/24/20 05/24/20 acetaminophen 650 mg PO Q4H PRN 05/24/20 05/24/20 pantoprazole [Protonix] 40 mg PO DAILY 05/24/20 05/24/20 quinapril 10 mg PO .NOON 05/24/20 05/24/20 sertraline [Zoloft] 100 mg PO DAILY 05/24/20 05/24/20 Previous Rx's Medication Instructions Recorded pen needle, diabetic 31 gauge x #100 each 02/03/1910/11 aspirin 81 mg tablet,delayed 81 mg PO DAILY #30 tab 03/06/19 release magnesium oxide 400 mg (241.3 mg 400 mg PO DAILY #30 tab 03/06/19 magnesium) tablet melatonin 3 mg tablet 6 mg PO HS PRN #60 tab 03/06/19 tramadol 50 mg tablet 50 mg PO Q12H PRN #56 tab 03/06/19 blood sugar diagnostic #100 each 03/19/19 blood-glucose meter #1 each 03/19/19 lancets #100 each 03/19/19 cabergoline 0.5 mg tablet 0.5 mg PO .COMPLEX #8 tab 04/13/19 Allergies Allergy/AdvReac Type Severity Reaction Status Date / Time atorvastatin AdvReac Intermediate GI upset, Verified 05/24/20 17:08 dizziness oxycodone AdvReac Intermediate nightmares Verified 05/24/20 17:08 General Stated Complaint: CVA/TIA DAIANA: 2 Review of Systems Constitutional Constitutional: Denies fatigue, Denies fever(s) and Denies headache(s) Eyes Eyes: Denies change in vision ENT Ears, Nose, Mouth, and Throat: Denies headache(s) and Denies neck pain Cardiovascular Cardiovascular: Denies chest pain, Reports lightheadedness and Denies dyspnea Respiratory Respiratory: Denies cough and Denies dyspnea Gastrointestinal Gastrointestinal: Denies abdominal pain, Denies nausea and Denies vomiting Musculoskeletal Musculoskeletal: Reports arthralgias (Right shoulder) and Denies neck pain Integumentary/Breasts Skin/Breast: Denies rash Neurologic Neurologic: Denies headache(s) Endocrine Endocrine: Denies fatigue [facility] Medical History [place] [facility] [place] fibrillation and flutter Atrial flutter Depression ESRD (end stage renal disease) Essential hypertension Hypercholesterolemia Secondary hyperparathyroidism Sleep apnea Type II diabetes mellitus Surgical History Colonoscopy - MAC (08/07/16) Hx of joint replacement Hx of tonsillectomy S/P total knee replacement Family History Mother Diabetes Cancer Sister Cancer Diabetes Brother Heart disease Father No problems noted. 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 Do you feel safe at home: Yes Do you feel safe in your relationship?: Yes Exam Const General: cooperative, comfortable and no acute distress Orientation: alert, awake, oriented to person, oriented to place and confused (Patient believes it is early May) HENMT Head: normal to inspection, no palpable skull fracture, normocephalic and atraumatic General nose exam: external nose normal Face and sinus: normal facial exam Mouth: oral mucosae normal and moist mucous membranes Throat: posterior oropharynx normal Eyes General: appearance normal, both eyes and all related structures Alignment and Position: alignment normal Periorbital: periorbital findings normal Eyelids: eyelids normal Conjunctivae: conjunctivae normal Sclera: sclerae normal Cornea: corneas normal Pupils: PERRL EOM: EOM intact bilaterally Direct ophthalmoscopy: normal light reflex Neck Neck: normal visual inspection, full ROM, no meningeal signs, trachea midline, supple and nontender Resp Effort & Inspection: normal respiratory effort and able to speak in complete sentences Auscultation: clear to auscultation bilaterally Cardio Rate: regular rate Rhythm: regular rhythm GI Inspection: normal to inspection Palpation: soft and nontender Auscultation: normal bowel sounds Back/Spine/Pelvis Back: No back tenderness Skin General skin exam: no rashes or lesions noted Neuro General: patient alert, patient awake, moves all extremities and no focal motor deficits Cranial Nerves: CN's II-XI intact bilaterally Speech: speech normal Gait: staggering Motor: muscle tone normal throughout, strength 5/5 throughout, no pronator drift, no movement abnormalities noted and no fasciculations Sensory Exam: no sensory deficits noted Coordination: [id number] test normal, [id number] test normal and Does not sway with eyes open Extrem General: normal to inspection, full ROM, capillary refill normal, no pedal edema and no calf tenderness Psych Appearance: grossly normal Mental Status: mental status grossly normal Course Vital Signs Vital signs: Vital Signs Temperature 37.1 C 05/24/20 17:01 Pulse 87 05/24/20 17:01 Respiratory Rate 20 05/24/20 17:01 Blood Pressure 154/93 H 05/24/20 17:01 Pulse Oximetry 99 05/24/20 17:01 Temperature 37.1 C 05/24/20 17:01 Temperature Source Skin 05/24/20 17:01 Pulse 87 05/24/20 17:01 Respiratory Rate 20 05/24/20 17:01 Respiratory Effort Non-Labored 05/24/20 17:01 Blood Pressure 154/93 H 05/24/20 17:01 Blood Pressure Position Supine 05/24/20 17:01 Pulse Oximetry 99 05/24/20 17:01 Oxygen Delivery Method Room Air 05/24/20 17:01 Oxygen Flow Rate 0 05/24/20 17:01 Pain Level 0 05/24/20 17:01
[2020-05-24 18:01] LABS: Abs Immature Grans 0.03 10^3/uL (0.0-0.06); Absolute Basophil Count 0.02 10^3/uL (0.0-0.2); Absolute Eosinophil Count 0.14 10^3/uL (0.0-0.7); Absolute Lymphocyte Count 0.43 10^3/uL (1.2-3.4); Absolute Monocyte Count 0.59 10^3/uL (0.1-0.8); Absolute Neutrophil Count 5.94 10^3/uL (1.2-6.7); Basophils % 0.3; HGB 10.6 g/dL (13.5-17.5); Immature Grans % 0.4; MCH 30.6 pg (27.0-33.0); MCHC 32.1 % (32.0-36.0); MCV 95.4 fL (80-95); MPV 10.7 fL (8.0-11.0); Monocytes % 8.3; Nucleated RBC 0 %; Platelet Count 179 10^3/uL (130-400); RBC 3.46 10^6/uL (4.36-5.78); RDW 16.6 % (11.8-14.1); RDW-SD 57.5 fL; WBC 7.15 10^3/uL (4.4-10.8)
[2020-05-24 18:16] LABS: ALT 14 U/L (16-63); AST 10 U/L (15-37); Albumin 3.3 g/dL (3.4-5.0); Alkaline Phosphatase 93 U/L (46-116); Anion Gap 8.1 mmol/L (3-11); BUN 39 mg/dL (7-18); Bilirubin, Total 0.5 mg/dL (0.2-1.0); CO2 30.9 mmol/L (21.0-32.0); Calcium 8.6 mg/dL (8.5-10.1); Chloride 99 mmol/L (98-107); Glucose 136 mg/dL (74-106); Potassium 4.1 mmol/L (3.5-5.1); Sodium 138 mmol/L (136-145); Total Protein 7.6 g/dL (6.4-8.2); Troponin I 0.05 ng/mL (<0.06)
[2020-05-24 18:20] LABS: CREATININE 6.88 mg/dL (0.70-1.30)
[2020-05-24 18:23] LABS: Prothrombin Time 12.5 sec (9.3-11.0)
[2020-05-24 18:24] LABS: INR 1.2 (0.9-1.1)
--- NOTE | 2020-05-24 18:43 | DI.VRAD_ITS ---
PROCEDURE INFORMATION: Exam: XR Chest, 2 Views Exam date and time: 05/24/2020 6:36 PM Age: 69 years old Clinical indication: Other: Fall/weakness TECHNIQUE: Imaging protocol: XR of the chest Views: 2 views. COMPARISON: No relevant prior studies available. FINDINGS: Lungs: Unremarkable. No consolidation. Pleural space: Unremarkable. No pleural effusion. No pneumothorax. Heart/Mediastinum: Cardiomegaly. Vasculature: There is fairly significant aortic ectasia. Bones/joints: Severe degenerative change right shoulder with mild to moderate thoracic spondylosis. No acute fracture seen. IMPRESSION: Cardiomegaly. Aortic ectasia. Aortic aneurysm not excludable. Dictated and Authenticated by: Carol Che MD. Ordering:RODGER Zapata MD
--- NOTE | 2020-05-24 18:44 | DI.VRAD_ITS ---
PROCEDURE INFORMATION: Exam: XR Right Shoulder Exam date and time: 05/24/2020 6:36 PM Age: 69 years old Clinical indication: Other: Fall TECHNIQUE: Imaging protocol: XR Right shoulder. Views: 2 or more views. COMPARISON: CR XR shoulder RT complete 2+V 09/19/2018 12:03 PM FINDINGS: Bones/joints: Severe degenerative changes right glenohumeral articulation with joint space narrowing, subchondral sclerosis and eburnation of bone. There are mild to moderate degenerative changes of the AC joint with joint space narrowing and hypertrophic spurring. Alignment is essentially anatomic without evidence for fracture. Soft tissues: Normal. IMPRESSION: Changes of arthritis. No evidence for fracture. Dictated and Authenticated by: Carol Che MD. Ordering:RODGER Zapata MD
[2020-05-24 18:59] VITALS: RESP 18
--- NOTE | 2020-05-24 19:02 | DI.VRAD_ITS ---
PROCEDURE INFORMATION: Exam: CT Head Without Contrast Exam date and time: 05/24/2020 5:17 PM Age: 69 years old Clinical indication: Other: Fall yesterday, weakness TECHNIQUE: Imaging protocol: Computed tomography of the head without contrast. COMPARISON: CT HEAD WO 05/23/2019 12:55 PM FINDINGS: Brain: Cerebral volume loss noted, unchanged. Scattered areas of decreased attenuation in the deep periventricular white matter consistent with small vessel ischemic change. No evidence for acute intracranial hemorrhage. Cerebral ventricles: No ventriculomegaly. Bones/joints: Unremarkable. No acute fracture. Paranasal sinuses: Visualized sinuses are unremarkable. No fluid levels. Mastoid air cells: Partial opacification left mastoid air cells noted, new. Soft tissues: Unremarkable. IMPRESSION: 1. Senescent changes noted, stable. No acute intracranial abnormality. 2. Mild inflammatory change left mastoid air cells. Dictated and Authenticated by: Carol Che MD. Ordering:RODGER Zapata MD
[2020-05-24 20:02] VITALS: BP 158/67; PULSE 72; RESP 18; TEMP 36.8; O2SAT 96
== END 2020-05-24 20:10 | disposition other institution (70) ==
PROVIDERS: Emergency Provider Physician Assistant; PCP Family Medicine
DX: N18.6 End stage renal disease (principal); Z99.2 Dependence on renal dialysis; E11.22 Type 2 diabetes mellitus with diabetic chronic kidney disease; I12.0 Hypertensive chronic kidney disease with stage 5 chronic kidney disease or end stage renal disease; M25.511 Pain in right shoulder; W19.XXXA Unspecified fall, initial encounter
CPT/HCPCS: 36416; 80053; 82962; 93005; 99284; 70450; 71046; 73030; 83735; 84484; 85025; 85610; 85730; 93010

== ENCOUNTER 2020-05-25 16:12 | Outpatient (REF) | payer MEDICARE, MEDICAID, SELFPAY ==
[2020-05-30 11:20] LABS: COVID-19 RT-PCR Result Not Detected
== END 2020-05-25 16:32 ==
LOC: LBN 16:12
PROVIDERS: PCP Family Medicine; Visit Provider Nurse Practitioner Adult Health
DX: Z11.59 Encounter for screening for other viral diseases (principal)
CPT/HCPCS: U0003

== ENCOUNTER 2020-06-01 18:15 | Outpatient (REF) | payer MEDICARE, MEDICAID, SELFPAY ==
[2020-06-03 16:09] LABS: SARS-CoV-2 RNA Not Detected (NotDetected); SARS-CoV-2 RNA Source Nasal/Nares
== END 2020-06-01 18:35 ==
LOC: LBN 18:15
PROVIDERS: PCP Family Medicine; Visit Provider Nurse Practitioner Adult Health
DX: Z11.59 Encounter for screening for other viral diseases (principal)
CPT/HCPCS: U0003

== ENCOUNTER 2020-06-15 15:01 | Outpatient (REF) | payer MEDICARE, MEDICAID, SELFPAY ==
[2020-06-17 21:45] LABS: SARS-CoV-2 RNA Source Nasal/Nares
[2020-06-17 21:46] LABS: SARS-CoV-2 RNA Not Detected (NotDetected)
== END 2020-06-15 15:21 ==
LOC: LBN 15:01
PROVIDERS: PCP Family Medicine; Visit Provider Nurse Practitioner Adult Health
DX: Z11.59 Encounter for screening for other viral diseases (principal)
CPT/HCPCS: U0003

== ENCOUNTER 2020-06-22 15:14 | Outpatient (REF) | payer MEDICARE, MEDICAID, SELFPAY ==
[2020-06-26 09:11] LABS: SARS-CoV-2 RNA Not Detected (NotDetected); SARS-CoV-2 RNA Source Nasal/Nares
== END 2020-06-22 15:34 ==
LOC: LBN 15:14
PROVIDERS: PCP Family Medicine; Visit Provider Nurse Practitioner Adult Health
DX: Z11.59 Encounter for screening for other viral diseases (principal)
CPT/HCPCS: U0003

== ENCOUNTER 2020-07-06 18:57 | Outpatient (REF) | payer MEDICARE, MEDICAID, SELFPAY ==
[2020-07-07 17:48] LABS: COVID-19 RT-PCR Result Not Detected ((See Note))
== END 2020-07-06 19:17 ==
LOC: LBN 18:57
PROVIDERS: PCP Family Medicine; Visit Provider Nurse Practitioner Adult Health
DX: Z11.59 Encounter for screening for other viral diseases (principal)
CPT/HCPCS: U0003

== ENCOUNTER 2020-07-16 21:52 | Emergency (ER) | payer MEDICARE, MEDICAID, SELFPAY ==
--- NOTE | 2020-07-16 21:40 | ED.GENADUL_ITS ---
Discharge Plan Disposition Patient Disposition: [facility] Condition: Stable Discharge Details Clinical Impression: Fluid overload, Hyperuricemia, Pulmonary edema, Hypoxemia, Altered mental status Primary Care Provider: Kwaku Rios ED Provider: Peter Hairston Home Meds and New Rx's Prescriptions: No Action melatonin 3 mg tablet 6 mg PO HS PRN (Reason: sleep) Qty: 60 RF: 11 (DME) pen needle, diabetic [Lite Touch Insulin Pen [place]] 31 gauge x 3/16 needle See Dose Instructions .ROUTE .MEDSUPPLY Qty: 100 RF: 3 (DME) blood sugar diagnostic Strip See Rx Instructions .ROUTE .MEDSUPPLY Qty: 100 RF: 12 (DME) blood-glucose meter Kit See Rx Instructions .ROUTE .MEDSUPPLY Qty: 1 RF: 0 (DME) lancets [Lancets,Ultra Thin] Misc See Rx Instructions .ROUTE .MEDSUPPLY Qty: 100 RF: 12 (DME) plister nette Qty: 1 RF: 0 carvedilol 3.125 mg tablet 9.375 mg PO BID RF: 0 rosuvastatin [Crestor] 10 mg tablet 5 mg PO DAILY RF: 0 insulin lispro [Humalog KwikPen Insulin] 100 unit/mL insulin pen 4 unit SC QAC RF: 0 furosemide 80 mg tablet 80 mg PO DIRECTED RF: 0 amlodipine [Norvasc] 10 mg Tablet 5 mg PO DAILY RF: 0 quinapril 20 mg tablet 20 mg PO .NOON RF: 0 sevelamer carbonate [Renvela] 800 mg Tablet 800 mg PO TID RF: 0 trazodone 50 mg tablet 25 mg PO QHS RF: 0 magnesium hydroxide 400 mg/5 mL Suspension 30 ml PO ONCE PRN (Reason: constipation) RF: 0 lorazepam 0.5 mg Tablet 0.5 mg PO QTUTHSA RF: 0 bisacodyl 10 mg Suppository 10 mg ND ONCE PRNRF: 0 lorazepam 1 mg Tablet 1 mg PO QTUTHSA PRN (Reason: dialysis) RF: 0 ondansetron 4 mg Tablet,Disintegrating 4 mg PO Q8H PRNRF: 0 sertraline [Zoloft] 100 mg tablet 200 mg PO DAILY RF: 0 quinapril 10 mg Tablet 10 mg PO .NOON RF: 0 pantoprazole [Protonix] 40 mg tablet,delayed release (DR/EC) 40 mg PO DAILY RF: 0 He Caps 1 mg capsule 1 cap PO DAILY RF: 0 Lantus Solostar U-100 Insulin 100 unit/mL (3 mL) insulin pen 10 unit SC QHS RF: 0 acetaminophen 650 mg Tablet 650 mg PO Q4H PRNRF: 0 Medical Decision Making This is a 69-year-old male with a past medical history of diabetes, dialysis, renal failure, history of PVCs A. fib a flutter, who still urinates, his dialysis days are Saturday, , Saturday, presents today from health and rehab for evaluation of abnormal vital signs and altered mental status. Health and rehab reports that earlier today they feel he may have fallen and hit his right head. Is been acting relatively normal until this evening, when he has become slightly more confused per staff, there is also had a slight increase in oxygen demand. Per the facility he was in the mid 80s, for his O2 status, upon EMS arrival the patient was on 2 L and his oxygenation has normalized, and he showed no signs of tachycardia or hypotension. He was brought to the ER for further evaluation. Currently he has no complaints. He denies chest pain shortness of breath, he does seem to be a poor historian though. His last dialysis day was which was 2 days ago. Normally he would have dialysis today on Saturday but he did not as he refused. This is very common for him to refuse dialysis. No other complaints at this time. No other modifying factors. Physical exam demonstrates no evidence of significant focal neurologic deficits at all. He was slightly confused. He is able to recall the month and who he has. He does have a bruise over his right synagogue. No other signs of significant trauma, because of crackles in his left lower lung reeves, potentially due to mild fluid overload from missing dialysis however he does not show any other signs of overload with no edema. Mucous membranes are actually slightly dry. Differential includes encephalopathy secondary to hyper uremia, fluid overload, electrolyte abnormality,. Will evaluate for these potential etiologies. He still does make urine. Infectious etiology less likely with normal vital signs. 11:[address] scan of the head has returned normal per virtual radiology with no acute process bleed or fracture. Chest x-ray shows notable edema on the left greater than the right. proBNP is greater than 35,000. No white count, no bandemia. Hemoglobin is 9.3 slightly lower compared to normal. Ammonia level, PCO2 level, salicylates and acetaminophen are all unremarkable. Signs and symptoms appear to be consistent with fluid overload secondary to lack of dialysis. Review of previous echo from January 2019 from outside facility seems to indicate he has an EF of 33%. We will give 80 mg of Lasix as he still does make some urine however this is clearly not the solution and he does need dialysis. We are not able to perform dialysis here at our facility. I have called the nurse practitioner on-call for his facility, Valerie, multiple times but unfortunately we have not gotten a response. I feel that he will require transfer for dialysis and management. Oxygenation remains at 95% on 2 L, he is mildly tachypneic, mental status is otherwise been unchanged. Heart rate in the 114 teens. Blood pressure stable. We will place a Garrett to measure urine output. 11:52 PM Discussed the case with Dr. Villeda at [facility], he agrees with the assessment and plan. Patient will be transferred to [facility] for dialysis and further management. I have extensively reviewed the treatment plan with the patient. I have addressed all patient concerns at this time. I have also discussed the plan with the admitting physician and they agree with the current assessment and plan and have agreed to assume responsibility for the patient. All parties demonstrate verbal understanding and agreement with our assessment and plan at this time. Also of note upon evaluation of the patient's genitals, there are multiple atypical urine pathways. An attempt was tried to place a Garrett catheter however this did result in pain, after single attempt was made no additional attempts were made out of concern for for the atypical nature of the potential path and not wanting to do any harm. We will get a condom catheter for the patient instead. At time of transfer the patient was reassessed and continued to demonstrate current medical stability. No signs of acute respiratory distress requiring intubation, hemodynamic instability requiring pressor support, or rapidly declining mental status. The patient is stable for transport. EKG 22: 05 Rate 87, sinus rhythm, no significant ST elevations or depressions, inverted T waves present in V6 with minimal depression, however review of prior EKG from 05/24/2020 demonstrates that these are old findings and not acute. No other significant ST elevation or depression. FINDINGS: Lungs: New, significant left greater than right interstitial and airspace opacities. Low lung volumes. Pleural space: Hard to exclude a left pleural effusion. No large right pleural effusion. No pneumothorax. Heart/Mediastinum: Similar moderate cardiomegaly . Bones/joints: Degenerative changes in the shoulders. No displaced fracture. IMPRESSION: 1. New, significant left greater than right interstitial and airspace opacities. Consider multi lobar pneumonia, edema and/or ARDS. 2. Similar moderate cardiomegaly . Probable component of vascular congestion. Thank you for allowing us to participate in the care of your patient. Dictated and Authenticated by: Pallavi Goldberg MD 07/16/2020 11:22 PM Eastern Time ([place] & [place]) FINDINGS: Brain: Moderate cerebral atrophy. Minimal periventricular white matter hypodensity. No edema or hemorrhage. Cerebral ventricles: Ex vacuo dilation of the ventricular system. Bones/joints: No acute fracture. Paranasal sinuses: No acute sinusitis. Mastoid air cells: No mastoid effusion. Vasculature: Atherosclerosis. Soft tissues: No suspicious lesions. IMPRESSION: No acute intracranial findings. Thank you for allowing us to participate in the care of your patient. Dictated and Authenticated by: Pallavi Goldberg MD 07/16/2020 11:11 PM Eastern Time ([place] & [place]) HPI General Date/Time Provider Initiated Documentation: 07/16/20 21:59 . HPI Narrative: This is a 69-year-old male with a past medical history of diabetes, dialysis, renal failure, history of PVCs A. fib a flutter, who still urinates, his dialysis days are Saturday, , Saturday, presents today from health and rehab for evaluation of abnormal vital signs and altered mental status. Health and rehab reports that earlier today they feel he may have fallen and hit his right head. Is been acting relatively normal until this evening, when he has become slightly more confused per staff, there is also had a slight increase in oxygen demand. Per the facility he was in the mid 80s, for his O2 status, upon EMS arrival the patient was on 2 L and his oxygenation has normalized, and he showed no signs of tachycardia or hypotension. He was brought to the ER for further evaluation. Currently he has no complaints. He denies chest pain shortness of breath, he does seem to be a poor historian though. His last dialysis day was which was 2 days ago. Normally he would have dialysis today on Saturday but he did not as he refused. This is very common for him to refuse dialysis. No other complaints at this time. No other modifying factors. Related Data Home Medications Medication Instructions Recorded Confirmed pen needle, diabetic 31 gauge x #100 each 02/03/19 06/01/19/16 melatonin 3 mg tablet 6 mg PO HS PRN #60 tab 03/06/19 07/16/20 blood sugar diagnostic #100 each 03/19/19 06/01/19 blood-glucose meter #1 each 03/19/19 06/01/19 lancets #100 each 03/19/19 06/01/19 plister nette #1 ea 04/13/19 06/01/19 amlodipine [Norvasc] 5 mg PO DAILY 05/23/19 07/16/20 carvedilol 9.375 mg PO BID 05/23/19 07/16/20 furosemide 80 mg PO DIRECTED 05/23/19 07/16/20 insulin lispro [Humalog KwikPen 4 unit SC QAC 05/23/19 05/24/20 Insulin] quinapril 20 mg PO .NOON 05/23/19 07/16/20 rosuvastatin [Crestor] 5 mg PO DAILY 05/23/19 07/16/20 sevelamer carbonate [Renvela] 800 mg PO TID 05/23/19 07/16/20 trazodone 25 mg PO QHS 05/23/19 07/16/20 Lantus Solostar U-100 Insulin 10 unit SC QHS 05/24/20 07/16/20 [place] Caps 1 cap PO DAILY 05/24/20 07/16/20 acetaminophen 650 mg PO Q4H PRN 05/24/20 07/16/20 pantoprazole [Protonix] 40 mg PO DAILY 05/24/20 07/16/20 quinapril 10 mg PO .NOON 05/24/20 07/16/20 sertraline [Zoloft] 200 mg PO DAILY 05/24/20 07/16/20 bisacodyl 10 mg ND ONCE PRN 07/16/20 07/16/20 lorazepam 0.5 mg PO QTUTHSA 07/16/20 07/16/20 lorazepam 1 mg PO QTUTHSA PRN 07/16/20 07/16/20 magnesium hydroxide 30 ml PO ONCE PRN 07/16/20 07/16/20 ondansetron 4 mg PO Q8H PRN 07/16/20 07/16/20 Previous Rx's Medication Instructions Recorded pen needle, diabetic 31 gauge x #100 each 02/03/19 3/16 melatonin 3 mg tablet 6 mg PO HS PRN #60 tab 03/06/19 blood sugar diagnostic #100 each 03/19/19 blood-glucose meter #1 each 03/19/19 lancets #100 each 03/19/19 Allergies Allergy/AdvReac Type Severity Reaction Status Date / Time atorvastatin AdvReac Intermediate GI upset, Verified 07/16/20 22:24 dizziness oxycodone AdvReac Intermediate nightmares Verified 07/16/20 22:24 General DAIANA: 2 Review of Systems All systems reviewed & are unremarkable except as noted in HPI and below PFSH Medical History Anxiety Atrial fibrillation Echo 02/06/19 at [facility] [place] Atrial fibrillation and flutter Atrial flutter Care refused by patient often refuses to go to dialysis but when pressed, says he doesn't want to give it up Depression ESRD (end stage renal disease) ESRD on dialysis Essential hypertension Goals of care, counseling/discussion Hypercholesterolemia Memory deficit continues to ask to speak to sister who has Palliative care patient Panic attacks Repeated falls Secondary hyperparathyroidism Sleep apnea Social isolation Type II diabetes mellitus Unsteady gait Weight loss used to weigh >400 lbs laparoscopic banding Surgical History Colonoscopy - [facility] (08/07/16) Hx of joint replacement Hx of laparoscopic gastric banding Hx of tonsillectomy S/P total knee replacement Family History Mother , in her 80s Diabetes Cancer Sister , age 71 very close to Kofi Cancer Diabetes Brother Heart disease Father , in his 80s Cancer Sister No problems noted. 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 Pets and animals: No Do you think of yourself as: straight/heterosexual Current gender identity: male What is your relationship status?: How often do you talk on the phone with friends or family?: three or more times per week How often do you get together with friends or relatives?: never Panel score (0-1 are the most socially isolated patients): 1 What type of physical activity do you participate in: none Special zeus needs: No Agree to transfusion: Yes Seatbelt use: always Drive intox or ride w/intox electric pile driver operator: No Working smoke detector in home: Yes Fire extinguisher in home: Yes Firearms in home: No Do you feel safe at home: Yes Do you feel safe in your relationship?: Yes Additional Social history: Kofi reports that he has been living at the Rehab, he thinks, for several months. He is a vague historian. I was asked to see him by Valerie Burris NP after an incident on 05/24 at dialysis where Kofi ripped out his IV and blood spattered all over. He reports he does not remember the incident. He doesn't remember going to [facility] ER afterward. He says he does want to continue with dialysis. He tells me he is on a kidney transplant waiting list. He spends a long time talking about his love of music, his playing guitar. He shares that he moved to [place] after he inherited a house from his sister, Vidal, who . He says he wouldn't have moved here otherwise. He recently his --since he moved to [place], he says--for economic reasons. She is still his DPOA. He is a loner but living here, and being forced to quarantine at Rehab, has been making him very depressed and anxious. He is on sertraline 100 mg daily, but it is not working. He is willing to go up on his dose. He is willing to work on finding ways to have more music in his life. Exam Narrative Exam Narrative: 1.Const: Well-nourished, Well-developed, appearing stated age 2.Eyes: PERRL, no conjunctival injection, and symmetrical lids. 3.ENT: Atraumatic external nose and ears. dry MM. Neck: Symmetric, trachea midline, No thyromegaly. There is no evidence of raccoon eyes, irwin sign, CSF rhinorrhea, mastoid tenderness, cranial crepitus, hemotympanum, exophthalmos, or hyphema. Patient demonstrates intact dentition with no signs of tooth avulsion or fracture, no signs of jaw deformity, no evidence of a LeFort's fracture, with an intact palate, nose and orbital region. There is no evidence of a nasal septal hematoma. No proptosis. Jaw closes symmetrically. Airway is clear. Mild bruising over the right temporal region. Minimal tenderness. 4.CVS: +S1/S2, No murmurs or gallops. Peripheral pulses 2+ and equal in all extremities. Brisk capillary refill in all extremities. 5.RESP: Unlabored respiratory effort. Crackles in the bases on the left and slightly on the right as well. No wheezes or rhonchi. 6.GI: Soft, Nontender/Nondistended, No hepatosplenomegaly. No guarding or rebound. 7.MSK: Normocephalic/Atraumatic, Extremities w/o deformity or ttp No cyanosis or clubbing, Normal movement of all extremities. No midline cervical thoracic spine tenderness. No neck tenderness. 8.Skin: Warm, Dry. No rashes or lesions. Please see ENT 9.Neuro: shank tapper II-XII grossly intact. Sensation grossly intact, no focal neurologic deficits. Patient moves all extremities well, follows commands well, no evidence of focal neurologic deficits. No meningismus. 10.Psych: (AAO) x2. He was aware of the month, not the year. He does know himself.
--- NOTE | 2020-07-16 21:45 | DI.CT_ITS ---
EXAM: CT HEAD WO CLINICAL HISTORY: fall, right temporal hematoma, old. TECHNIQUE: Imaging Protocol: Axial computed tomography images with coronal and sagittal reformatted images were created and reviewed COMPARISON: CT CT HEAD WO from 05/24/2020 FINDINGS: Ventricles and Extra axial spaces: Normal in size and morphology for the patient's age. Hemorrhage: None. Cerebral parenchyma: Subtle areas of decreased attenuation in the white matter most consistent with s mall vessel ischemic disease. No acute territorial infarct. Midline shift: None. Brainstem/Cerebellum: Normal. Calvarium: Normal. Visualized Paranasal sinuses/Mastoids: Clear. Soft Tissues: Unremarkable. IMPRESSION: No acute intracranial process. RADIATION DOSE DELIVERED: 743.38mGy.cm Total DLP DATA REPOSITORY: All CT scans at this facility are submitted to the National Radiology Data Registry (NRDR) Dose Index Registry (DIR) with the [employer] [place] [employer] (ACR). RADIATION OPTIMIZATION: All CT scans at this facility use at least one of these dose optimization te chniques: automated exposure control; mA and/or kV adjustment per patient size (includes targeted exa ms where dose is matched to clinical indication); or iterative reconstruction.
[2020-07-16 21:54] VITALS: BP 139/78; PULSE 87; RESP 23; TEMP 36.2; O2SAT 99
--- NOTE | 2020-07-16 22:00 | DI.RAD_ITS ---
EXAM: XR PORTABLE CHEST AP CLINICAL HISTORY: sob, hypoxic, maybe fluid overloaded TECHNIQUE: 2D digital imaging was performed. COMPARISON: No exams were available for comparison FINDINGS: MEDIASTINUM: Normal. HEART: Stable cardiomegaly. PULMONARY VASCULATURE: Normal. LUNGS: Diffuse bilateral interstitial airspace opacities. PLEURAL SPACE: No definite right pleural effusion. A left pleural effusion cannot be excluded. BONE:Within normal limits for the patient's age. OTHER FINDINGS:Low lung volumes. IMPRESSION: 1. Diffuse bilateral interstitial and airspace opacities. Differential considerations include multif ocal ammonia, pulmonary edema and/or ARDS. 2. Stable cardiomegaly. DATA REPOSITORY: RADIATION DOSE DELIVERED:
--- NOTE | 2020-07-16 22:00 | RT.EKG_ITS ---
APPROVED REPORT Exam: Resting ECG Patient Location: E HR:87 bpm ECG Measurements Heart Rate 87 AXIS WY 203 P 51 QRSd 94 QRS -12 QT 419 T 132 QTc 504 Conclusion Sinus rhythm...normal P axis, V-rate 60- 99 Probable left atrial enlargement...P >50mS, <-0.10mV V1 Abnormal T, consider ischemia, lateral leads...T <-0.20mV, I aVL V5 V6 Prolonged QT interval...QTc >500mS Physician: EKG 22: 05 Rate 87, sinus rhythm, no significant ST elevations or depressions, inverted T waves present in V6 wi th minimal depression, however review of prior EKG from 05/24/2020 demonstrates that these are old fi ndings and not acute. No other significant ST elevation or depression.
[2020-07-16 22:11] LABS: BE (Venous) 7 mmol/L (-2-3); HCO3 (Venous) 31 mmol/L (23-28); O2 Sat (Venous) 51 %; TCO2 (Venous) 30 mmol/L (24-29); pCO2 (Venous) 47 mmHg (41-51); pH (Venous) 7.44 (7.31-7.41); pO2 (Venous) 30 mmHg
[2020-07-16 22:14] LABS: Abs Immature Grans 0.05 10^3/uL (0.0-0.06); Absolute Basophil Count 0.02 10^3/uL (0.0-0.2); Absolute Eosinophil Count 0.01 10^3/uL (0.0-0.7); Absolute Lymphocyte Count 0.29 10^3/uL (1.2-3.4); Absolute Monocyte Count 0.43 10^3/uL (0.1-0.8); Basophils % 0.2; Eosinophils % 0.1; HCT 28.5 % (40.0-50.0); HGB 9.3 g/dL (13.5-17.5); Immature Grans % 0.5; Lymphocytes % 2.8; MCH 28.8 pg (27.0-33.0); MCHC 32.6 % (32.0-36.0); MCV 88.2 fL (80-95); Monocytes % 4.1; Neutrophils % 92.3; Nucleated RBC 0 %; Platelet Count 159 10^3/uL (130-400); RBC 3.23 10^6/uL (4.36-5.78); RDW 18.7 % (11.8-14.1); RDW-SD 59.6 fL
[2020-07-16 22:28] LABS: Ammonia 13 umol/L (11-32)
[2020-07-16 22:36] LABS: ALT 36 U/L (16-63); AST 30 U/L (15-37); Albumin 2.7 g/dL (3.4-5.0); Alkaline Phosphatase 104 U/L (46-116); BUN 65 mg/dL (7-18); Calcium 9.3 mg/dL (8.5-10.1); Chloride 97 mmol/L (98-107); Estimated GFR 6.78 (mL/min/1.73m2); Glucose 230 mg/dL (74-106); Potassium 4.5 mmol/L (3.5-5.1); Sodium 136 mmol/L (136-145); Total Protein 7.4 g/dL (6.4-8.2)
[2020-07-16 22:38] LABS: CREATININE 7.94 mg/dL (0.70-1.30)
[2020-07-16 22:59] LABS: Salicylate < 2.8 mg/dL (2.8-20.0)
[2020-07-16 23:05] LABS: Acetaminophen < 2 ug/mL (10-30)
[2020-07-16 23:11] LABS: NT-proBNP > 35000 pg/mL (<300)
--- NOTE | 2020-07-16 23:11 | DI.VRAD_ITS ---
PROCEDURE INFORMATION: Exam: CT Head Without Contrast Exam date and time: 07/16/2020 22:49 Age: 69 years old Clinical indication: Injury or trauma; Blunt trauma (contusions or hematomas); Patient HX: Fall, hematoma right temporal TECHNIQUE: Imaging protocol: Computed tomography of the head without contrast. COMPARISON: CT HEAD WO 05/24/2020 18:27 FINDINGS: Brain: Moderate cerebral atrophy. Minimal periventricular white matter hypodensity. No edema or hemorrhage. Cerebral ventricles: Ex vacuo dilation of the ventricular system. Bones/joints: No acute fracture. Paranasal sinuses: No acute sinusitis. Mastoid air cells: No mastoid effusion. Vasculature: Atherosclerosis. Soft tissues: No suspicious lesions. IMPRESSION: No acute intracranial findings. Dictated and Authenticated by: Pallavi Goldberg MD. Ordering:KARTHIK Green MD
--- NOTE | 2020-07-16 23:22 | DI.VRAD_ITS ---
PROCEDURE INFORMATION: Exam: XR Chest, 1 View Exam date and time: 07/16/2020 23:04 Age: 69 years old Clinical indication: Shortness of breath; Patient HX: SOB, hypoxia, maybe fluid overload TECHNIQUE: Imaging protocol: XR of the chest Views: 1 view. COMPARISON: CR XR CHEST 2V PA LATERAL 05/24/2020 18:20 FINDINGS: Lungs: New, significant left greater than right interstitial and airspace opacities. Low lung volumes. Pleural space: Hard to exclude a left pleural effusion. No large right pleural effusion. No pneumothorax. Heart/Mediastinum: Similar moderate cardiomegaly . Bones/joints: Degenerative changes in the shoulders. No displaced fracture. IMPRESSION: 1. New, significant left greater than right interstitial and airspace opacities. Consider multi lobar pneumonia, edema and/or ARDS. 2. Similar moderate cardiomegaly . Probable component of vascular congestion. Dictated and Authenticated by: Pallavi Goldberg MD. Ordering:KARTHIK Green MD
[2020-07-16 23:31] VITALS: BP 119/72; PULSE 83; RESP 20; O2SAT 95
[2020-07-16] MEDS: Furosemide 100 MG/10 ML VIAL 80 MG IVP (23:35)
[2020-07-17 00:01] VITALS: BP 117/79; PULSE 114; RESP 31; O2SAT 92
--- NOTE | 2020-07-17 00:01 | NUR.NOTE ---
Attempted to place cross, pt noted to have multiple openings to tip of penis. Zainab RN attempted to pass cross without success. MD Hairston aware. Condom cath in place. Pt noted to have on dry brief. states inct at baseline.
[2020-07-17 00:15] VITALS: PULSE 112; RESP 40; TEMP 37.5; O2SAT 96
[2020-07-17 00:30] VITALS: PULSE 114; RESP 22; O2SAT 95
[2020-07-17 00:31] VITALS: BP 118/71; PULSE 68; PULSE 76; RESP 17; O2SAT 94
[2020-07-17 00:45] VITALS: PULSE 115; RESP 26; O2SAT 92
== END 2020-07-17 01:25 | disposition short-term general hospital (02) ==
PROVIDERS: Emergency Provider Student in an Organized Health Care Education/Training Program; PCP Family Medicine
DX: E87.79 Other fluid overload (principal); J81.0 Acute pulmonary edema; R09.02 Hypoxemia; E79.0 Hyperuricemia without signs of inflammatory arthritis and tophaceous disease; E11.22 Type 2 diabetes mellitus with diabetic chronic kidney disease; I12.0 Hypertensive chronic kidney disease with stage 5 chronic kidney disease or end stage renal disease; N18.6 End stage renal disease; Z99.2 Dependence on renal dialysis; Z91.15 Patient's noncompliance with renal dialysis
CPT/HCPCS: 36415; 80053; 82805; 93005; 96374; 99285; 70450; 71045; 80329; 82140; 83880; 85025; 93010; J1940

== ENCOUNTER 2020-07-24 13:37 | Outpatient (REF) | payer MEDICARE, MEDICAID, SELFPAY ==
[2020-07-26 17:07] LABS: COVID-19 RT-PCR Result Not Detected ((See Note))
== END 2020-07-24 13:57 ==
LOC: LBN 13:37
PROVIDERS: PCP Family Medicine; Visit Provider Nurse Practitioner Adult Health
DX: Z11.59 Encounter for screening for other viral diseases (principal)
CPT/HCPCS: U0003

== ENCOUNTER 2020-08-02 18:24 | Outpatient (REF) | payer MEDICARE, MEDICAID, SELFPAY ==
[2020-08-03 16:37] LABS: COVID-19 RT-PCR Result Not Detected ((See Note))
== END 2020-08-02 18:44 ==
LOC: LBN 18:24
PROVIDERS: PCP Family Medicine; Visit Provider Nurse Practitioner Adult Health
DX: Z11.59 Encounter for screening for other viral diseases (principal)
CPT/HCPCS: U0003

== ENCOUNTER 2020-08-05 22:23 | Outpatient (REF) | payer MEDICARE, MEDICAID, SELFPAY ==
[2020-08-06 17:31] LABS: COVID-19 RT-PCR Result Not Detected ((See Note))
== END 2020-08-05 22:43 ==
LOC: LBN 22:23
PROVIDERS: PCP Family Medicine; Visit Provider Nurse Practitioner Adult Health
DX: Z11.59 Encounter for screening for other viral diseases (principal)
CPT/HCPCS: U0003

== ENCOUNTER 2020-08-07 16:16 | Outpatient (REF) | payer MEDICARE, MEDICAID, SELFPAY ==
[2020-08-09 15:18] LABS: COVID-19 RT-PCR Result Not Detected ((See Note))
== END 2020-08-07 16:36 ==
LOC: LBN 16:16
PROVIDERS: PCP Family Medicine; Visit Provider Nurse Practitioner Adult Health
DX: Z11.59 Encounter for screening for other viral diseases (principal)
CPT/HCPCS: U0003

== ENCOUNTER 2020-08-10 16:05 | Outpatient (REF) | payer MEDICARE, MEDICAID, SELFPAY ==
[2020-08-11 16:47] LABS: COVID-19 RT-PCR Result Not Detected ((See Note))
== END 2020-08-10 16:25 ==
LOC: LBN 16:05
PROVIDERS: PCP Family Medicine; Visit Provider Nurse Practitioner Adult Health
DX: Z11.52 Encounter for screening for COVID-19 (principal)
CPT/HCPCS: U0003

== ENCOUNTER 2020-08-24 19:23 | Outpatient (REF) | payer MEDICARE, MEDICAID, SELFPAY ==
[2020-08-26 09:08] LABS: COVID-19 RT-PCR Result Not Detected ((See Note))
== END 2020-08-24 19:43 ==
LOC: LBN 19:23
PROVIDERS: PCP Family Medicine; Visit Provider Nurse Practitioner Adult Health
DX: Z11.52 Encounter for screening for COVID-19 (principal)
CPT/HCPCS: U0003

== ENCOUNTER 2020-08-31 15:20 | Outpatient (REF) | payer MEDICARE, MEDICAID, SELFPAY ==
[2020-09-01 14:58] LABS: COVID-19 RT-PCR Result Not Detected ((See Note))
== END 2020-08-31 15:21 | disposition home or self-care (01) ==
LOC: LBN 15:20
PROVIDERS: PCP Family Medicine; Visit Provider Nurse Practitioner Adult Health
DX: Z11.52 Encounter for screening for COVID-19 (principal)
CPT/HCPCS: U0003; U0005

== ENCOUNTER 2020-09-07 22:45 | Outpatient (REF) | payer MEDICARE, MEDICAID, SELFPAY ==
[2020-09-08 16:27] LABS: COVID-19 RT-PCR Result Not Detected ((See Note))
== END 2020-09-07 22:46 | disposition home or self-care (01) ==
LOC: LBN 22:45
PROVIDERS: PCP Family Medicine; Visit Provider Nurse Practitioner Adult Health
DX: Z20.822 Contact with and (suspected) exposure to COVID-19 (principal)
CPT/HCPCS: U0003; U0005

== ENCOUNTER 2020-09-11 22:51 | Outpatient (REF) | payer MEDICARE, MEDICAID, SELFPAY ==
[2020-09-11 23:47] LABS: C Diff PCR Negative (Negative)
== END 2020-09-11 22:52 | disposition home or self-care (01) ==
LOC: LBN 22:51
PROVIDERS: PCP Family Medicine; Visit Provider Family Medicine
DX: K26.4 Chronic or unspecified duodenal ulcer with hemorrhage (principal); E87.70 Fluid overload, unspecified
CPT/HCPCS: 87493